=== PATIENT | female | born 1970 | race Caucasian/White ===

== ENCOUNTER → 2018-05-27 | Outpatient (CLI) | payer MEDICAID ==
[~2018-05-27] MED LIST: ALB0.5V; ALBU0.63 IH; ALBU17AE23; ALEN70TA5 PO; ALPR0.5T7 PO; ALPR1T; AMIT50TA3 PO; ATOR20TA66 PO; CEPH500C PO; CYCL10TA9 PO; FURO20TA4 PO; HYDR-3720 PO; HYDR-3816 PO; HYDR-707 PO; IBUP-1780 PO; METH4TAB PO; METH750T3 PO; MOXI400T; NAPR-243 PO; NAPR250T34 PO; PARO40TA47; RT-ALBUINH IH; TEMA30CA PO
--- NOTE | 2018-05-27 14:44 | Diagnostic Imaging Report ---
INDICATION: UPJ stone. TIME OF EXAM: 02:12 p.m. There are surgical clips in right upper quadrant likely from prior cholecystectomy. No definite radiopaque renal calculi are seen. Portion of the left kidney is obscured by colonic gas. Densities in the pelvis are noted which may represent fecal material. There is some rounded calcific density in the right pelvis, likely phleboliths. No definite calculi are seen along the expected course of the ureters. IMPRESSION: No definite urinary tract calculi are seen. If there is concern for urinary tract calculi, CT could be performed for further evaluation. Dictated by: Dictated on workstation # [id number]
== END ==
LOC: RAD 13:51
PROVIDERS: ATTEND Urology
DX: N20.1 Calculus of ureter (principal); Z90.49 Acquired absence of other specified parts of digestive tract
CPT/HCPCS: 74018

== ENCOUNTER 2018-05-28 05:30 | Outpatient (CLI) | payer MEDICAID ==
[~2018-05-28] VITALS: Ht 157.5 cm; Wt 56.7 kg
[~2018-05-28 05:30] MED LIST changes: -ALBU0.63 IH; -ALEN70TA5 PO; -ALPR0.5T7 PO; -AMIT50TA3 PO; -ATOR20TA66 PO; -CYCL10TA9 PO; -FURO20TA4 PO; -HYDR-3816 PO; -IBUP-1780 PO; -RT-ALBUINH IH; -TEMA30CA PO
[2018-05-28] MEDS ORDERED: ALEN70TA5 PO (12:09)
[2018-05-28] MEDS ORDERED: IBUP-1780 PO (12:09)
[2018-05-28] MEDS ORDERED: ATOR20TA66 PO (12:09)
[2018-05-28] MEDS ORDERED: ALBU0.63 IH (12:09)
[2018-05-28] MEDS ORDERED: HYDR-3816 PO (12:14)
[2018-05-28] MEDS ORDERED: RT-ALBUINH IH (12:14)
[2018-05-28] MEDS ORDERED: ALPR0.5T7 PO (12:14)
[2018-05-28] MEDS ORDERED: FURO20TA4 PO (12:14)
[2018-05-28] MEDS ORDERED: AMIT50TA3 PO (12:14)
[2018-05-28] MEDS ORDERED: TEMA30CA PO (12:14)
[2018-05-28] MEDS ORDERED: CYCL10TA9 PO (12:14)
== END 2018-05-28 12:23 | disposition home or self-care (01) ==
LOC: PREOP 05:30
PROVIDERS: ATTEND Urology
DX: Z01.818 Encounter for other preprocedural examination (principal)

== ENCOUNTER 2018-06-02 12:00 | Outpatient (CLI) | payer MEDICAID ==
[~2018-06-02] VITALS: Ht 157.5 cm; Wt 60.8 kg
[~2018-06-02 12:00] MED LIST changes: -NITR-65 PO; -TAMS0.4C98 PO
[2018-06-03] MEDS ORDERED: NITR-65 PO (10:58)
[2018-06-03] MEDS ORDERED: TAMS0.4C98 PO (10:58)
== END 2018-06-02 13:20 | disposition home or self-care (01) ==
LOC: PREOP 12:00
PROVIDERS: ATTEND Urology
DX: Z01.818 Encounter for other preprocedural examination (principal)

== ENCOUNTER → 2018-06-02 | Outpatient (CLI) | payer MEDICAID ==
[~2018-06-02] MED LIST changes: +ALBU0.63 IH; +ALEN70TA5 PO; +ALPR0.5T7 PO; +AMIT50TA3 PO; +ATOR20TA66 PO; +CYCL10TA9 PO; +FURO20TA4 PO; +HYDR-3816 PO; +IBUP-1780 PO; +NITR-65 PO; +RT-ALBUINH IH; +TAMS0.4C98 PO; +TEMA30CA PO
--- NOTE | 2018-06-02 13:39 | Diagnostic Imaging Report ---
PROCEDURE: CT urinary tract, rule out kidney stone. TECHNIQUE: Multiple contiguous axial images were obtained through the abdomen and pelvis without the use of intravenous contrast. INDICATION: Ureteral stone. FINDINGS: The previous CT abdomen/pelvis exam of 02/04/2008 failed to show any sign of obstruction of either kidney. There was a small nonobstructive calculus within the left kidney. In the interval since the prior study, a ureteral stent has been inserted on the left. The stent seems to be in good position. There may be one or two minute nonobstructive calculi within the left kidney. There is no evidence for nephrolithiasis on the right. The urinary bladder is grossly unremarkable. There is no pelvic mass or free fluid collection evident. In the interval since the prior exam, an appendicolith has developed within the appendix. The appendix does not seem to be abnormally thickened, and there is no distortion of the periappendiceal fat to suggest acute appendicitis. The uterus is surgically absent. The liver, spleen, pancreas, adrenals, aorta, and inferior vena cava show no sign of an acute abnormality. As noted on the prior exam, the gallbladder is surgically absent. The stomach is not well distended and consequently difficult to assess. The lung bases are generally clear. There is no obvious breast mass. According to our records, the patient has not had a recent (within the last year) mammogram. If the patient has had a recent mammogram elsewhere, then no further imaging would be necessary. If the patient has not had a recent mammogram, then mammography would be recommended for further evaluation. The bone windows show no sign of a fracture or of a destructive lesion. IMPRESSION: 1. There is a ureteral stent in place on the left. The stent appears to be in good position. There are a few nonobstructive calculi within the left kidney. 2. There is no acute abnormality of the abdomen or pelvis. 3. The gallbladder and uterus are surgically absent. 4. There is no obvious breast mass. Recommendations as above. Dictated by: Dictated on workstation # [id number]
--- NOTE | 2018-06-02 14:34 | Diagnostic Imaging Report ---
EXAMINATION: Supine abdomen at 12:51 p.m. INDICATION: Ureteral/renal stone. FINDINGS: In the interval since the prior exam of 05/29/2018, a ureteral stent has been inserted on the left. The stent appears to be in good position. The 4 mm calculus overlying the left kidney seen previously is again evident and no different. There also appear to be a few calcifications low in the pelvis. These are felt to represent phleboliths. No new abnormality has developed otherwise. IMPRESSION: 1. There has been interval insertion of a ureteral stent on the left. The stent seems to be in good position. 2. The calculus overlying the left kidney seen previously is again evident and no different. Dictated by: Dictated on workstation # [id number]
== END ==
LOC: RAD 12:31
PROVIDERS: ATTEND Urology
DX: N20.2 Calculus of kidney with calculus of ureter (principal); Z90.49 Acquired absence of other specified parts of digestive tract; Z96.0 Presence of urogenital implants; Z90.710 Acquired absence of both cervix and uterus
CPT/HCPCS: 74018; 74176

== ENCOUNTER 2018-06-03 06:31 | Day surgery (SDC) | payer MEDICAID ==
[~2018-06-03] VITALS: Ht 157.5 cm; Wt 60.8 kg
[2018-06-03] MEDS: LACTATED RINGERS 1,000 ML IV PRN ×2 (06:55→09:25)
[2018-06-03 07:00] VITALS: BP 111/82
[2018-06-03] MEDS ORDERED: LEVOFLOXACIN 250 MG/50 ML IVPB 50 ML ONE (07:02)
[2018-06-03] MEDS ORDERED: fentaNYL INJECTION 100 MCG/2 ML AMP ONE ×2 (07:11→08:12)
--- NOTE | 2018-06-03 07:11 | Progress Note-Pre Operative ---
Pre-Operative Progress Note H&P Reviewed The H&P was reviewed, patient examined and no changes noted. Date Seen by Provider: Jun 03, 2018 Time Seen by Provider: 07:11 Date H&P Reviewed: Jun 03, 2018 Time H&P Reviewed: 07:11 Pre-Operative Diagnosis: LT URETERAL AND RENAL STONES RM BELLO MD Jun 03, 2018 07:11
[2018-06-03] MEDS ORDERED: fentaNYL INJECTION 100 MCG/2 ML AMP IVP ONE (07:15)
[2018-06-03] MEDS ORDERED: LEVOFLOXACIN 250 MG/50 ML IVPB 50 ML IV ONE (07:15)
[2018-06-03] MEDS ORDERED: CATHETER FLUSH 10 ML SYR IV PRN (07:45)
[2018-06-03] MEDS ORDERED: proPOfol 200 MG/20 ML (DIPRIVAN) VIAL IV ONE (08:11)
[2018-06-03] MEDS ORDERED: LIDOCAINE PF 2% 5 ML (XYLOCAINE) VIAL ONE (08:11)
[2018-06-03] MEDS ORDERED: MIDAZOLAM 2 MG/2 ML (VERSED) VIAL ONE (08:12)
--- NOTE | 2018-06-03 08:12 | Diagnostic Imaging Report ---
INDICATION: Nephrolithiasis. Comparison is made with prior examination from 06/02/2018. FINDINGS: A left nephroureteral stent remains in place. There is persistent calcification of the left kidney. Bowel gas pattern is nonspecific. There are surgical clips in the right upper quadrant. The osseous structures are unremarkable. IMPRESSION: Persistent nonobstructing left renal calculi. Left nephroureteral stent remains in place. Nonspecific bowel gas pattern Dictated by: Dictated on workstation # [id number]
[2018-06-03] MEDS ORDERED: DEXAMETHASONE 10 MG/ML (DECADRON) 1 ML VIAL ONE (08:14)
[2018-06-03] MEDS ORDERED: SEVOFLURANE (ULTANE) 15 ML INHAL SOLN ONE ×2 (08:14→09:38)
[2018-06-03] MEDS ORDERED: ONDANSETRON 4 MG/2 ML (SDV) Z0FRAN ONE (08:14)
--- NOTE | 2018-06-03 09:17 | Discharge Inst-Urology ---
Discharge Inst-Urology Discharge Medications New, Converted, or Re-newed RX: RX on Chart Patient Instructions/Follow Up Plan Please make appointment to been seen in office in 2 weeks, KUB prior to it. KUB on way home Post ESWL instructions Increase oral fluids for 48 hours and then as needed. Diet and Activity as tolerated. If questions or concerns contact your physician Or seek help at emergency department. RM BELLO MD Jun 03, 2018 09:17
--- NOTE | 2018-06-03 09:18 | Progress Note-Post Operative ---
Post-Operative Progess Note Surgeon (s)/Neighborhood Worker (s) Surgeon RM BELLO MD Neighborhood Worker: NONE Pre-Operative Diagnosis LT URETERAL AND RENAL STONES Post-Operative Diagnosis SAME Procedure & Operative Findings Date of Procedure 06/03/18 Procedure Performed/Findings LT ESWL X 2 Anesthesia Type GENERAL Estimated Blood Loss Estimated blood loss (mL): NONE Specimens/Packing Specimens Removed NONE Packing: NONE RM BELLO MD Jun 03, 2018 09:18
[2018-06-03] MEDS ORDERED: PHENYLEPHRINE 100 MCG/ML 10 ML (ANESTHESIA) SYR ONE (09:38)
[2018-06-03] MEDS ORDERED: FUROSEMIDE 40 MG/4 ML INJ (LASIX) ONE (09:38)
[2018-06-03] MEDS ORDERED: ONDANSETRON 4 MG/2 ML (SDV) Z0FRAN IVP PRN (10:00)
[2018-06-03] MEDS ORDERED: MEPERIDINE (DEMEROL) INJ 50 MG/ML IVP ONE (10:00)
[2018-06-03] MEDS ORDERED: morphine INJ 10 MG/ML 1ML (SYR OR VIAL) IVP ONE (10:00)
[2018-06-03 10:35] VITALS: BP 121/83
--- NOTE | 2018-06-03 10:35 | NUR ---
TO AMB SURG FROM PAR PER CART. ALERT, RATES LEFT LOWER ABD/PELVIC DISCOMFORT 2. PO FLUIDS PROVIDED.
--- NOTE | 2018-06-03 10:51 | Anesthesia-General Post-Op ---
General Patient Condition Mental Status/LOC: Same as Preop Cardiovascular: Satisfactory Nausea/Vomiting: Absent Respiratory: Satisfactory Pain: Controlled Complications: Absent Post Op Complications Complications None Follow Up Care/Instructions Patient Instructions None needed. Anesthesia/Patient Condition Patient Condition Patient is doing well, no complaints, stable vital signs, no apparent adverse anesthesia problems. No complications reported per nursing. AVTAR HUGGINS CRNA Jun 03, 2018 10:51
[2018-06-03] MEDS ORDERED: NITR-65 PO (10:58)
[2018-06-03] MEDS ORDERED: TAMS0.4C98 PO (10:58)
[2018-06-03 11:05] VITALS: BP 105/83
--- NOTE | 2018-06-03 11:30 | NUR ---
HAS VOIDED 1800 CC CLEAR, LIGHT PINK URINE, STRAINED, NO STONE PARTICLES OBTAINED. RATES LEFT LOWER ABD/PELVIC PAIN 1. REQUESTING DISMISSAL.
[2018-06-03 11:35] VITALS: BP 109/83
[2018-06-03 11:42] VITALS: BP 109/83
--- NOTE | 2018-06-03 13:48 | OPERATIVE REPORT ---
DATE OF SERVICE: 06/03/2018 PREOPERATIVE DIAGNOSES: Left distal ureteral and left renal stones. POSTOPERATIVE DIAGNOSES: Left distal ureteral and left renal stones. OPERATION PERFORMED: Left ESWL x2. SURGEON: Genaro Bello MD. ANESTHESIA: General. COMPLICATIONS: None. DESCRIPTION OF PROCEDURE: Under satisfactory general anesthesia, the patient in supine position on the ESWL table, we first localized the left distal ureteral stone. Shocks were delivered at a kV of 5, 1500 shocks completely fragmented the stone that was not visualized anymore. Then, we directed the attention to the left renal stone. It was localized and shocks again were delivered at a kV of 4 and 1500 shocks were enough to the fragment completely the stone. The patient received 40 mg of Lasix. We did not give her any Toradol. She is allergic to ASPIRIN. She tolerated the procedure and anesthesia well and was sent to recovery room in stable condition. Job ID: [id number] DocumentID: [id number] Dictated Date: 06/03/2018 09:37:30 Senior [employer] Net Developer Date: 06/03/2018 13:48:07 Dictated By: GENARO BELLO MD
--- NOTE | 2018-06-03 15:20 | Diagnostic Imaging Report ---
EXAMINATION: Supine abdomen at 11:18 a.m. INDICATION: Post ESWL. FINDINGS: Reportedly, in the interval since the exam performed earlier today at 07:04 a.m., the patient has undergone ESWL. The calcification overlying the left kidney seen previously has been fragmented. The ureteral stent noted on the prior study is again evident and unchanged in position. The overall appearance of the abdomen is otherwise no different. IMPRESSION: The calcification overlying the left kidney seen previously has been fragmented. The overall appearance of the abdomen is otherwise stable. Dictated by: Dictated on workstation # [id number]
== END 2018-06-03 11:42 | disposition home or self-care (01) ==
LOC: SDC 06:31
PROVIDERS: ATTEND Urology
DX: N20.1 Calculus of ureter (principal); N20.0 Calculus of kidney; E78.5 Hyperlipidemia, unspecified; F32.9 Major depressive disorder, single episode, unspecified; Z79.899 Other long term (current) drug therapy
CPT/HCPCS: 74018; 87081

== ENCOUNTER → 2018-06-09 | Outpatient (CLI) | payer MEDICAID ==
[~2018-06-09] MED LIST changes: +NITR-65 PO; +TAMS0.4C98 PO
--- NOTE | 2018-06-09 17:11 | Diagnostic Imaging Report ---
INDICATION: Left ureteral calculi. TIME OF EXAM: 02:49 p.m. Correlation is made with prior radiograph from 06/03/2018. FINDINGS: A left-sided nephroureteral stent is again seen. Previously noted calculi overlying the left kidney are not well seen on today's study. There is a tiny rounded calcific density adjacent to the distal portion of the left stent, perhaps in the distal left ureter. This measures 2-3 mm in size. Right-sided pelvic calcifications likely represent phleboliths. There are some tiny densities adjacent to the more proximal aspect of the stent as well and could be located in the proximal left ureter. Bowel gas pattern is unremarkable IMPRESSION: Left-sided stent. There are some calcific densities lying adjacent to the proximal and distal aspect of the stent, as described. Dictated by: Dictated on workstation # [id number]
== END ==
LOC: RAD 14:28
PROVIDERS: ATTEND Urology
DX: N20.2 Calculus of kidney with calculus of ureter (principal); N94.89 Other specified conditions associated with female genital organs and menstrual cycle; Z96.0 Presence of urogenital implants
CPT/HCPCS: 74018

== ENCOUNTER → 2018-08-04 | Outpatient (CLI) | payer MEDICAID ==
--- NOTE | 2018-08-04 17:57 | Diagnostic Imaging Report ---
INDICATION: Left ureteral stone. Status post ESWL. FINDINGS: A supine view of the abdomen shows a normal bowel gas pattern. The left ureteral stent has been removed since the 06/09/2018 study. No urinary tract calcification is seen. There is no bony abnormality. IMPRESSION: No abnormality is seen. Dictated by: Dictated on workstation # [id number]
== END ==
LOC: RAD 16:30
PROVIDERS: ATTEND Urology
DX: N20.2 Calculus of kidney with calculus of ureter (principal); Z98.890 Other specified postprocedural states
CPT/HCPCS: 74018

== ENCOUNTER → 2018-11-25 | Outpatient (CLI) | payer MEDICAID ==
--- NOTE | 2018-11-25 10:29 | Diagnostic Imaging Report ---
Indication: Right knee at 9:49. Indication: Knee pain. Three views were obtained. There are no prior studies available for comparison. There is no fracture, dislocation or acute bony abnormality evident. The knee joint is fairly well-maintained. The soft tissues are unremarkable. Impression: There is no evidence for an acute bony abnormality. Dictated by: Dictated on workstation # [id number]
== END ==
LOC: RAD FS 09:44
PROVIDERS: ATTEND Nurse Practitioner Family
DX: M25.561 Pain in right knee (principal)
CPT/HCPCS: 73562

== ENCOUNTER → 2019-05-03 | Outpatient (CLI) | payer MEDICAID ==
--- NOTE | 2019-05-03 10:37 | Diagnostic Imaging Report ---
INDICATION: Low back pain radiating to the right leg. Time of exam: 10:26 AM There is some straightening of the normal lumbar lordotic curvature. Vertebral body heights are maintained. No acute compression fracture seen. Disc spaces are fairly well-maintained. There are some atherosclerotic calcifications throughout the abdominal aorta. IMPRESSION: No acute bony abnormality is detected. Dictated by: Dictated on workstation # [id number]
== END ==
LOC: RAD FS 10:23
PROVIDERS: ATTEND Nurse Practitioner Family
DX: M54.41 Lumbago with sciatica, right side (principal)
CPT/HCPCS: 72100

== ENCOUNTER → 2019-05-24 | Outpatient (CLI) | payer MEDICAID ==
[~2019-05-24] MED LIST changes: -TAMS0.4C98 PO; +TMSL.4C PO
--- NOTE | 2019-05-24 09:28 | Diagnostic Imaging Report ---
PROCEDURE: MRI lumbar spine. TECHNIQUE: Multiplanar, multisequence MRI of the lumbar spine was performed without contrast. INDICATION: Low back pain radiating down the right leg. COMPARISON: No prior studies are available for comparison. FINDINGS: Curvature and alignment of the lumbar spine is normal. Marrow signal intensity of the lumbar spine is normal. The sagittal images demonstrate some increased T2 signal in the right aspect of the sacrum, only seen on the sagittal images. This area was not included on the axial images but findings are most suggestive of a right sacral alar insufficiency fracture. Lumbar vertebrae show normal stature. There is fairly normal height and signal intensity to the lumbar intervertebral discs. Conus is unremarkable at the L1 level. T12-L1: Central canal and neural foramina are widely patent. L1-T2: Central canal and neural foramina are widely patent. L2-L3: There is some mild ligamentous thickening. The central canal is widely patent. There is very mild bilateral neuroforaminal narrowing. L3-L4: Central canal is widely patent. There is mild bilateral neuroforaminal narrowing. L4-L5: There is some ligamentous thickening and annular bulging indenting the ventral thecal sac. Central canal is patent. There is some narrowing of the lateral recesses with moderate left and mild right neuroforaminal narrowing. L5-S1: Central canal is patent. Neural foramina are patent. Paraspinous tissues demonstrate the probable cyst in the upper pole of the right kidney. IMPRESSION: 1. Generalized lumbar spondylosis with mild multilevel lateral recess and neuroforaminal narrowing described level by level above. No central canal stenosis or acute compression fracture is seen. 2. Marrow edema in the right sacral alar. Findings are most suggestive of right sacral alar insufficiency fracture. Dedicated MR through the sacrum or CT of the pelvis may be useful for further evaluation. Dictated by: Dictated on workstation # [id number]
== END ==
LOC: RAD 08:24
PROVIDERS: ATTEND Nurse Practitioner
DX: M51.16 Intervertebral disc disorders with radiculopathy, lumbar region (principal); M47.26 Other spondylosis with radiculopathy, lumbar region; M48.061 Spinal stenosis, lumbar region without neurogenic claudication; R60.9 Edema, unspecified
CPT/HCPCS: 72148

== ENCOUNTER → 2019-05-28 | Outpatient (CLI) | payer MEDICAID ==
--- NOTE | 2019-05-28 13:54 | Diagnostic Imaging Report ---
INDICATION: Right-sided flank pain, history of kidney stones. TECHNIQUE: Multiple contiguous axial images were obtained through the abdomen and pelvis without the use of intravenous contrast. Auto Exposure Controls were utilized during the CT exam to meet ALARA standards for radiation dose reduction. COMPARISON: Comparison made to 06/02/2018. FINDINGS: The visualized portions of the lung bases are clear. There is no pleural fluid collection. There is no free intraperineal air. The liver shows no focal lesion without contrast. Patient has had cholecystectomy. The spleen, adrenals, and pancreas all appear unremarkable. The right kidney appears normal. There is a tiny nonocclusive stone in the lower pole of the left kidney. There is no ureteral stone or hydronephrosis. There is no retroperitoneal mass or adenopathy. There is no ascites or abnormal fluid collection. Visualized bowel loops appear unremarkable. The uterus is surgically absent. Bony windows in the pelvis demonstrate sclerotic changes in the right sacral ala with a fairly linear configuration. These changes were not present on the prior study of 06/02/2018. These findings may represent subacute sacral insufficiency fracture on the right side. This corresponds to abnormality seen on MRI study of 05/24/2019. IMPRESSION: Evidence of previous cholecystectomy and hysterectomy. There is a small nonocclusive stone in the lower pole of the left kidney. There is no ureteral stone or hydronephrosis. There is no soft tissue mass or abnormal fluid collection. There are linear sclerotic changes in the right sacral ala which were not present on 06/02/2018 but were partially visualized on MRI study of 05/24/2019. The findings are compatible with a sacral insufficiency fracture which may be acute or subacute. Patient may benefit from sacroplasty if there is clinical symptomatology in this region. Dictated by: Dictated on workstation # [id number]
== END ==
LOC: RAD 12:34
PROVIDERS: ATTEND Urology
DX: N20.0 Calculus of kidney (principal)
CPT/HCPCS: 74176

== ENCOUNTER → 2019-11-09 | Outpatient (CLI) | payer MEDICAID ==
[~2019-11-09] MED LIST changes: +ALEN70TA2 PO; +ASPI-586 PO; +CARI1.5C PO; +HYDR-34 PO; -HYDR-3816 PO; +METO-351 PO; +PRAV20TA3 PO
== END ==
LOC: RAD 12:47
PROVIDERS: ATTEND Internal Medicine Cardiovascular Disease
DX: M79.604 Pain in right leg (principal); M79.605 Pain in left leg; R06.02 Shortness of breath; R07.89 Other chest pain; Z72.0 Tobacco use
CPT/HCPCS: 93923

== ENCOUNTER → 2019-11-09 | Outpatient (CLI) | payer MEDICAID ==
[~2019-11-09] MED LIST changes: -ALEN70TA2 PO; -ASPI-586 PO; -CARI1.5C PO; -METO-351 PO; -PRAV20TA3 PO
== END ==
LOC: RAD 12:50
PROVIDERS: ATTEND Nurse Practitioner Family
DX: R60.0 Localized edema (principal); Z53.8 Procedure and treatment not carried out for other reasons

== ENCOUNTER 2019-11-16 06:47 | Day surgery (SDC) | payer MEDICAID ==
[2019-11-16] VITALS (11 sets, daily range): BP systolic 102–129; BP diastolic 67–81
[~2019-11-16] VITALS: Ht 157 cm; Wt 64.0 kg
--- OUTSIDE RECORDS SUMMARY | 2019-11-16 06:50 | XMS REPORT ---
Author Author Mary CHILDRESS Organization [facility] Address [address] [place] [address] Care Team Providers Care [employer] Board Certified Orthotist Name Role Phone CHILDRESSYOLANDA TolentinoA Unavailable PROBLEMS Type Condition ICD9-CM Code EHH30-LO Code Onset Dates Condition S tatus SNOMED Code Problem OCD (obsessive compulsive disorder) F42.9 Active 249828521 Problem Status post colonoscopy with polypectomy Z98.890 Aug, Active 166309944 Problem Arthralgia M25.50 Aug, Active 821380 02 Problem Tubular adenoma of colon D12.6 Aug, Ac tive 096964921 Problem Chronic low back pain M54.5 Mar, Activ e 781786494 Problem Mixed hyperlipidemia E78.2 Oct, Active 295154831 Problem Asthma J45.909 Active 277026476 Problem Primary insomnia F51.01 Active 397 2004 Problem Bipolar disorder F31.9 Active 137 77403 Problem Essential hypertension I10 Active 14992053 Problem Primary osteoarthritis of left knee M17.12 18 A 2014 Active 070376094 Problem Tobacco use Z72.0 Feb, Active 37644 3000 Problem Osteoporosis M81.0 Active 5533773 6 Problem Depression F32.9 Active 99792649 Problem Anxiety F41.9 Active 70001077 ALLERGIES No Information ENCOUNTERS Encounter Location Date Diagnosis [address] [id number] Jan, [address] [address] Nov, Knee pain, acute M25.[address] [address] Nov, Acute pain of right knee M25.561 and Sherrie scout insomnia F51.[address] [address] Nov, Bipolar disorder F31.9 ; Essential hyper tension I10 ; Chronic low back pain M54.5 ; Mixed hyperlipidemia E78.2 and Primary insomnia F51.01 [facility] [address] [address] September, Chronic low back pain M54.[address] [address] September, Medication monitoring encounter Z51.81 [facility] [address] [address] September, [address] [address] September, Primary insomnia F51.01 ; Chronic low ba ck pain M54.5 ; Anxiety F41.9 and Medication monitoring encounter Z51.81 [facility] [place] [address] [address] Aug, Chronic low back pain M54.5 and Anxiety F41.9 [facility] [address] [address] Aug, [address] [address] Aug, Primary insomnia F51.01 [facility] [address] [address] Aug, Mixed hyperlipidemia E78.2 ; Depression F32.9 ; Chronic low back pain M54.5 ; Anxiety F41.9 ; Primary insomnia F51.01 and Essential hypertension I10 [facility] [place] [address] [address] Jul, [facility] [address] [address] Jul, [facility] [address] [address] Jun, [address] [address] Jun, [facility] [address] [facility] [id number] [address] [place] [address] May, [facility] [address] [id number] [address] [place] [phone] May, [facility] [address] [id number] [address] [place] [phone] May, [facility] [address] [id number] [address] [place] [address] Apr, [facility] [address] [id number] [address] [place] [phone] Apr, [facility] [address] [id number] [address] [place] [address] Mar, [facility] [address] [id number] [address] [place] [address] Mar, [facility] [address] [id number] [address] [place] [phone] Aug, [facility] [address] [id number] [address] [place] [address] Aug, [facility] [address] [id number] [address] [place] [phone] Aug, [facility] [address] [id number] [address] [place] [phone] Jul, [facility] [address] [id number] [address] [place] [phone] Jul, [facility] [address] [id number] [address] [place] [phone] Jul, [facility] [address] [id number] [address] [place] [phone] Jul, [facility] [address] [id number] [address] [place] [phone] Jun, IMMUNIZATIONS No Known Immunizations SOCIAL HISTORY Never Assessed REASON FOR VISIT Controlled fill 07/27 PLAN OF CARE VITAL SIGNS MEDICATIONS Medication Instructions Dosage Frequency Start Date End Date Duration S tatus Alprazolam 0.25 MG Orally 3 times a day 1 tablet as needed 8h 28 days Active Temazepam 30 MG Orally Once a day 1 capsule at bedtime as needed 24h 28 days Active RESULTS No Results PROCEDURES No Known procedures INSTRUCTIONS MEDICATIONS ADMINISTERED No Known Medications
--- OUTSIDE RECORDS SUMMARY | 2019-11-16 06:50 | XMS REPORT ---
Author Author Mary [place] Doctor Organization [facility] Address Unknown Phone Unavailable Care Team Providers Care Patient Manager Name Role Phone Migration, Doctor Unavailable Unavailable PROBLEMS Type Condition ICD9-CM Code ABR84-XI Code Onset Dates Condition S tatus SNOMED Code Problem OCD (obsessive compulsive disorder) F42.9 Active 995254390 Problem Status post colonoscopy with polypectomy Z98.890 Aug, Active 219537114 Problem Arthralgia M25.50 Aug, Active 611840 02 Problem Tubular adenoma of colon D12.6 Aug, Ac tive 873716492 Problem Chronic low back pain M54.5 Mar, Activ e 975751630 Problem Mixed hyperlipidemia E78.2 Oct, Active 246257518 Problem Asthma J45.909 Active 191733038 Problem Primary insomnia F51.01 Active 397 2004 Problem Bipolar disorder F31.9 Active 137 88504 Problem Essential hypertension I10 Active 41862854 Problem Primary osteoarthritis of left knee M17.12 18 2014 Active 298403364 Problem Tobacco use Z72.0 Feb, Active 67064 3000 Problem Osteoporosis M81.0 Active 0539283 6 Problem Depression F32.9 Active 92572166 Problem Anxiety F41.9 Active 80736755 ALLERGIES No Information ENCOUNTERS Encounter Location Date Diagnosis [address] [address] Nov, [address] [address] September, Primary insomnia F51.01 ; Chronic low ba ck pain M54.5 and Anxiety F41.[address] [address] Aug, Chronic low back pain M54.5 and Anxiety F41.[address] [address] Aug, [address] [place] [address] Aug, Primary insomnia F51.01 [facility] [address] [place] [address] Aug, Mixed hyperlipidemia E78.2 ; Depression F32.9 ; Chronic low back pain M54.5 ; Anxiety F41.9 ; Primary insomnia F51.01 and Essential hypertension I10 [facility] [address] [place] [address] Jul, [facility] [address] [place] [address] Jul, [facility] [address] [place] [address] Jun, [facility] [place] [address] [place] [address] Jun, [facility] [address] [id number] [address] [place] [phone] May, [facility] [address] [id number] [address] [place] [phone] May, [facility] [address] [id number] [address] [place] [phone] May, [facility] [address] [id number] [address] [place] [phone] Apr, [facility] [address] [id number] [address] [place] [phone] Apr, [facility] [address] [id number] [address] [place] [phone] Mar, [facility] [address] [id number] [address] [place] [phone] Mar, [facility] [address] [id number] [address] [place] [phone] 14 Aug, 2014 [facility] [address] [id number] [address] [place] [phone] 13 Aug, 2014 [facility] [address] [id number] [address] [place] [phone] Aug, [facility] [address] [facility] [id number] [address] [place] [phone] Jul, [facility] [address] [facility] [id number] [address] [place] [phone] Jul, [facility] [address] [facility] [id number] [address] [place] [phone] Jul, [facility] [address] [facility] [id number] [address] [place] [phone] Jul, [facility] [address] [facility] [id number] [address] [place] [phone] Jun, IMMUNIZATIONS No Known Immunizations SOCIAL HISTORY Never Assessed REASON FOR VISIT [facility] [place] PLAN OF CARE VITAL SIGNS MEDICATIONS Unknown Medications RESULTS No Results PROCEDURES No Known procedures INSTRUCTIONS MEDICATIONS ADMINISTERED No Known Medications
--- OUTSIDE RECORDS SUMMARY | 2019-11-16 06:50 | XMS REPORT ---
Author Author Mary KONG Organization [facility] Address [address] [place] [address] Care Team Providers Care Satellite Manager Name Role Phone YULIANA KONG Unavailable PROBLEMS Type Condition ICD9-CM Code NEI66-XY Code Onset Dates Condition S tatus SNOMED Code Problem OCD (obsessive compulsive disorder) F42.9 Active 963761393 Problem Status post colonoscopy with polypectomy Z98.890 Aug, Active 864471433 Problem Arthralgia M25.50 Aug, Active 963307 02 Problem Tubular adenoma of colon D12.6 Aug, Ac tive 669436258 Problem Chronic low back pain M54.5 Mar, Activ e 531716839 Problem Mixed hyperlipidemia E78.2 Oct, Active 259723529 Problem Asthma J45.909 Active 300836497 Problem Primary insomnia F51.01 Active 397 2004 Problem Bipolar disorder F31.9 Active 137 35264 Problem Essential hypertension I10 Active 44092375 Problem Primary osteoarthritis of left knee M17.12 18 A 2014 Active 776557140 Problem Tobacco use Z72.0 Feb, Active 52752 3000 Problem Osteoporosis M81.0 Active 4079288 6 Problem Depression F32.9 Active 09909673 Problem Anxiety F41.9 Active 40287830 ALLERGIES No Information ENCOUNTERS Encounter Location Date Diagnosis [address] [address] Nov, Knee pain, acute M25.[address] [address] Nov, Acute pain of right knee M25.561 and Sherrie scout insomnia F51.[address] [address] Nov, Bipolar disorder F31.9 ; Essential hyper tension I10 ; Chronic low back pain M54.5 ; Mixed hyperlipidemia E78.2 and Primary insomnia F51.01 [facility] [address] [address] September, Chronic low back pain M54.5 [facility] [address] [address] September, Medication monitoring encounter Z51.81 [facility] [address] [address] September, [facility] [address] [address] September, Primary insomnia F51.01 ; Chronic low ba ck pain M54.5 ; Anxiety F41.9 and Medication monitoring encounter Z51.81 [facility] [address] [place] [address] Aug, Chronic low back pain M54.5 and Anxiety F41.9 [facility] [address] [address] Aug, [facility] [address] [address] Aug, Primary insomnia F51.01 [facility] [address] [address] Aug, Mixed hyperlipidemia E78.2 ; Depression F32.9 ; Chronic low back pain M54.5 ; Anxiety F41.9 ; Primary insomnia F51.01 and Essential hypertension I10 [facility] [address] [address] Jul, [facility] [address] [address] Jul, [facility] [address] [address] Jun, [facility] [address] [address] Jun, [facility] [address] [facility] [id number] [address] [place] [phone] May, [facility] [address] [facility] [id number] [address] [place] [phone] May, [facility] [address] [id number] [address] [place] [phone] May, [facility] [address] [id number] [address] [place] [phone] Apr, [facility] [address] [id number] [address] [place] [phone] Apr, [facility] [address] [id number] [address] [place] [phone] Mar, [facility] [address] [id number] [address] [place] [phone] Mar, [facility] [address] [id number] [address] [place] [phone] Aug, [facility] [address] [id number] [address] [place] [phone] Aug, [facility] [address] [id number] [address] [place] [phone] Aug, [facility] [address] [id number] [address] [place] [phone] Jul, [facility] [address] [id number] [address] [place] [phone] Jul, [facility] [address] [id number] [address] [place] [phone] Jul, [facility] [address] [id number] [address] [place] [phone] Jul, [facility] [address] [id number] [address] [place] [phone] Jun, IMMUNIZATIONS No Known Immunizations SOCIAL HISTORY Never Assessed REASON FOR VISIT Medication refill request PLAN OF CARE VITAL SIGNS MEDICATIONS Medication Instructions Dosage Frequency Start Date End Date Duration Mattie lenz Hydrocodone-Acetaminophen 7.5-325 MG Orally 2 times a day 1 tablet 12h 19 Jul, 2018 28 days Active RESULTS No Results PROCEDURES No Known procedures INSTRUCTIONS MEDICATIONS ADMINISTERED No Known Medications
--- OUTSIDE RECORDS SUMMARY | 2019-11-16 06:50 | XMS REPORT ---
Author Author Mary [place] Doctor Organization [facility] Address Unknown Phone Unavailable Care Team Providers Care Tack Welder Name Role Phone Migration, Doctor Unavailable Unavailable PROBLEMS Type Condition ICD9-CM Code NCC86-HS Code Onset Dates Condition S tatus SNOMED Code Problem Status post colonoscopy with polypectomy Z98.890 Aug, 0 933810812 Problem Status post colonoscopy with polypectomy V45.89 Aug, 0 42430635 Problem Primary osteoarthritis of left knee 715.16 18 A 2014 0 731158370 Problem OCD (obsessive compulsive disorder) F42.9 0 023026855 Problem Arthralgia M25.50 2012 0 692907 02 Problem Tubular adenoma of colon D12.6 Aug, 0 395697615 Problem Arthralgia 719.40 Aug, 0 816643 02 Problem Chronic low back pain 724.2 Mar, 0 561735601 Problem Osteoporosis M81.0 0 0037066 6 Problem Chronic low back pain M54.5 Mar, 0 066182957 Problem Asthma J45.909 0 836561936 Problem Depression F32.9 0 41234223 Problem Mixed hyperlipidemia E78.2 Oct, 0 414172601 Problem Tobacco use Z72.0 Feb, 0 92609 3000 Problem OCD (obsessive compulsive disorder) 300.3 0 066166858 Problem Tubular adenoma of colon 211.3 Aug, 0 904781663 Problem Tobacco use 305.1 Feb, 0 93143 3000 Problem Bipolar disorder 296.80 0 137 65946 Problem Asthma 493.90 0 689619629 Problem Urinary tract infection, site not specified 599.0 Active 95933768 Problem Osteoporosis 733.00 0 2529832 6 Problem Mixed hyperlipidemia 272.2 Oct, 0 857017701 Problem Primary osteoarthritis of left knee M17.12 18 A 2014 0 744826085 Problem Bipolar disorder F31.9 0 137 00025 Problem Depression 311 0 81943217 Problem Screening for iron deficiency anemia V78.0 Active 892925278 Problem Other and unspecified endocr ine, nutritional, metabolic, and immunity disorders V77.99 Active 243008604 Problem Pain in joint, shoulder region 719.41 Active 666934742 ALLERGIES No Information ENCOUNTERS Encounter Location Date Diagnosis [facility] [address] [address] Aug, [facility] [address] [place] [phone] Jul, [facility] [address] [address] Jul, [facility] [address] [address] Jun, [facility] [address] [address] Jun, [facility] [place] [address] [facility] [id number] [address] [place] [phone] May, [facility] [place] [address] [id number] [address] [place] [phone] May, [facility] [place] [address] [id number] [address] [place] [phone] May, [facility] [place] [address] [id number] [address] [place] [phone] Apr, [facility] [place] [address] [id number] [address] [place] [phone] Apr, [facility] [place] [address] [id number] [address] [place] [phone] Mar, [facility] [place] [address] [id number] [address] [place] [phone] Mar, [facility] [place] [address] [id number] [address] [place] [phone] 14 Aug, 2014 [facility] [place] [address] [id number] [address] [place] [phone] 13 Aug, 2014 [facility] [place] [address] [id number] [address] [place] [phone] Aug, [facility] [place] [address] [facility] [id number] [address] [place] [phone] Jul, [facility] [place] [address] [facility] [id number] [address] [place] [phone] Jul, [facility] [place] [address] [facility] [id number] [address] [place] [phone] Jul, [facility] [place] [address] [facility] [id number] [address] [place] [phone] Jul, [facility] [place] [address] [facility] [id number] [address] [place] [phone] Jun, IMMUNIZATIONS No Known Immunizations SOCIAL HISTORY Never Assessed REASON FOR VISIT [facility] PLAN OF CARE VITAL SIGNS MEDICATIONS Medication Instructions Dosage Frequency Start Date End Date Duration S tatus Mobic 15 mg take 1 Tablet by Oral route 1 time per day 2 0 Jul, 2011 Active Nitrofurantoin Macrocrystal 100 mg 1 cap mahesh by Oral route 2 times per day for 7 day(s) Jul, Active RESULTS No Results PROCEDURES No Known procedures INSTRUCTIONS MEDICATIONS ADMINISTERED No Known Medications
--- OUTSIDE RECORDS SUMMARY | 2019-11-16 06:51 | XMS REPORT | Continuity of Care Document ---
Author Organization Unknown Address Unknown Phone Unavailable Allergies Active Description Code Type Severity Reaction Onset Reported/Identified Relationship to Patient Clinical Status Yes UNKNOWN ABX UNKNOWN ABX Mild N/A 09/15/2008 Yes aspirin [id number] Drug Allergy Mild N/A 05/28/2018 Yes moxifloxacin [id number] Drug Allergy Mild N/A 05/28/2018 Yes Penicillins [id number] Drug Aller gy Mild N/A 05/28/2018 Medications There is no data. Problems Date Dx Coded Attending Type Code Diagnosis Diagnosed By 05/28/2018 RM BELLO MD Ot N20.1 CALCULUS OF URETER 05/28/2018 RM BELLO MD Ot Z90.4 9 ACQUIRED ABSENCE OF OTHER SPECIFIED PART 05/28/2018 RM BELLO MD Ot N20.1 CALCULUS OF URETER 05/28/2018 RM BELLO MD Ot Z90.4 9 ACQUIRED ABSENCE OF OTHER SPECIFIED PART 05/28/2018 RM BELLO MD Ot Z01.8 18 ENCOUNTER FOR OTHER PREPROCEDURAL EXAMIN 05/29/2018 RM BELLO MD Ot N20.1 CALCULUS OF URETER 05/29/2018 RM BELLO MD Ot Z90.4 9 ACQUIRED ABSENCE OF OTHER SPECIFIED PART 05/29/2018 RM BELLO MD Ot Z01.8 18 ENCOUNTER FOR OTHER PREPROCEDURAL EXAMIN 05/29/2018 RM BELLO MD Ot F17.2 10 NICOTINE DEPENDENCE, CIGARETTES, UNCOMPL 05/29/2018 RM BELLO MD Ot J45.9 09 UNSPECIFIED ASTHMA, UNCOMPLICATED 05/29/2018 RM BELLO MD Ot K21.9 GASTRO-ESOPHAGEAL REFLUX DISEASE WITHOUT 05/29/2018 RM BELLO MD Ot N20.1 CALCULUS OF URETER 05/29/2018 RM BELLO MD Ot N81.1 0 CYSTOCELE, UNSPECIFIED 05/29/2018 RM BELLO MD Ot Z79.8 99 OTHER PHARMACIST MANAGER (CURRENT) DRUG THERAPY 06/01/2018 RM BELLO MD Ot F17.2 10 NICOTINE DEPENDENCE, CIGARETTES, UNCOMPL 06/01/2018 RM BELLO MD Ot J45.9 09 UNSPECIFIED ASTHMA, UNCOMPLICATED 06/01/2018 RM BELLO MD Ot K21.9 GASTRO-ESOPHAGEAL REFLUX DISEASE WITHOUT 06/01/2018 RM BELLO MD Ot N20.1 CALCULUS OF URETER 06/01/2018 RM BELLO MD Ot N81.1 0 CYSTOCELE, UNSPECIFIED 06/01/2018 RM BELLO MD, Ot Z79.8 99 OTHER ALF (CURRENT) DRUG THERAPY 06/02/2018 RM BELLO MD Ot Z01.8 18 ENCOUNTER FOR OTHER PREPROCEDURAL EXAMIN 06/02/2018 RM BELLO MD Ot N20.2 CALCULUS OF KIDNEY WITH CALCULUS OF URET 06/02/2018 RM BELLO MD Ot Z90.4 9 ACQUIRED ABSENCE OF OTHER SPECIFIED PART 06/02/2018 RM BELLO MD Ot Z90.7 10 ACQUIRED ABSENCE OF BOTH CERVIX AND UTER 06/02/2018 RM BELLO MD Ot Z96.0 PRESENCE OF UROGENITAL IMPLANTS 06/03/2018 RM BELLO MD Ot Z01.8 18 ENCOUNTER FOR OTHER PREPROCEDURAL EXAMIN 06/03/2018 RM BELLO MD Ot E78.5 HYPERLIPIDEMIA, UNSPECIFIED 06/03/2018 RM BELLO MD Ot F32.9 MAJOR DEPRESSIVE DISORDER, SINGLE EPISOD 06/03/2018 RM BELLO MD Ot N20.0 CALCULUS OF KIDNEY 06/03/2018 RM BELLO MD Ot N20.1 CALCULUS OF URETER 06/03/2018 RM BELLO MD Ot Z79.8 99 OTHER PHARMACIST MANAGER (CURRENT) DRUG THERAPY 06/04/2018 RM BELLO MD Ot E78.5 HYPERLIPIDEMIA, UNSPECIFIED 06/04/2018 RM BELLO MD Ot F32.9 MAJOR DEPRESSIVE DISORDER, SINGLE EPISOD 06/04/2018 RM BELLO MD Ot N20.0 CALCULUS OF KIDNEY 06/04/2018 RM BELLO MD Ot N20.1 CALCULUS OF URETER 06/04/2018 RM BELLO MD Ot Z79.8 99 OTHER PHARMACIST MANAGER (CURRENT) DRUG THERAPY 06/09/2018 RM BELLO MD Ot N20.2 CALCULUS OF KIDNEY WITH CALCULUS OF URET 06/09/2018 RM BELLO MD Ot N94.8 9 OTH COND ASSOC W FEMALE GENITAL ORGANS A 06/09/2018 RM BELLO MD Ot Z96.0 PRESENCE OF UROGENITAL IMPLANTS 06/10/2018 RM BELLO MD, Ot N20.2 CALCULUS OF KIDNEY WITH CALCULUS OF URET 06/10/2018 RM BELLO MD Ot N94.8 9 OTH COND ASSOC W FEMALE GENITAL ORGANS A 06/10/2018 RM BELLO MD, Ot Z96.0 PRESENCE OF UROGENITAL IMPLANTS 07/09/2018 RM BELLO MD Ot F17.2 10 NICOTINE DEPENDENCE, CIGARETTES, UNCOMPL 07/09/2018 RM BELLO MD Ot J45.9 09 UNSPECIFIED ASTHMA, UNCOMPLICATED 07/09/2018 RM BELLO MD Ot K21.9 GASTRO-ESOPHAGEAL REFLUX DISEASE WITHOUT 07/09/2018 RM BELLO MD Ot N20.1 CALCULUS OF URETER 07/09/2018 RM BELLO MD, Ot N81.1 0 CYSTOCELE, UNSPECIFIED 07/09/2018 RM BELLO MD, Ot Z79.8 99 OTHER PHARMACIST MANAGER (CURRENT) DRUG THERAPY 08/05/2018 RM BELLO MD Ot N20.2 CALCULUS OF KIDNEY WITH CALCULUS OF URET 08/05/2018 RM BELLO MD Ot Z98.8 90 OTHER SPECIFIED POSTPROCEDURAL STATES 08/10/2018 RM BELLO MD Ot N20.2 CALCULUS OF KIDNEY WITH CALCULUS OF URET 08/10/2018 RM BELLO MD Ot Z98.8 90 OTHER SPECIFIED POSTPROCEDURAL STATES 11/30/2018 LUANN, YULIANA S INSPECTOR TOOL Ot M25.561 PAIN IN RIGHT KNEE 12/02/2018 YULIANA KONG INSPECTOR TOOL Ot M25.561 PAIN IN RIGHT KNEE 05/03/2019 RM BELLO MD Ot N20.1 CALCULUS OF URETER 05/03/2019 RM BELLO MD Ot Z90.4 9 ACQUIRED ABSENCE OF OTHER SPECIFIED PART 05/03/2019 RM BELLO MD Ot N20.2 CALCULUS OF KIDNEY WITH CALCULUS OF URET 05/03/2019 RM BELLO MD, Ot Z90.4 9 ACQUIRED ABSENCE OF OTHER SPECIFIED PART 05/03/2019 RM BELLO MD, Ot Z90.7 10 ACQUIRED ABSENCE OF BOTH CERVIX AND UTER 05/03/2019 RM BELLO MD Ot Z96.0 PRESENCE OF UROGENITAL IMPLANTS 05/03/2019 RM BELLO MD, Ot N20.2 CALCULUS OF KIDNEY WITH CALCULUS OF URET 05/03/2019 RM BELLO MD, Ot N94.8 9 OTH COND ASSOC W FEMALE GENITAL ORGANS A 05/03/2019 MR BELLO MD, Ot Z96.0 PRESENCE OF UROGENITAL IMPLANTS 05/03/2019 RM BELLO MD, Ot N20.2 CALCULUS OF KIDNEY WITH CALCULUS OF URET 05/03/2019 RM BELLO MD Ot Z98.8 90 OTHER SPECIFIED POSTPROCEDURAL STATES 05/03/2019 LUANNYULIANA Tolentino Mattie INSPECTOR TOOL Ot M25.561 PAIN IN RIGHT KNEE 05/06/2019 YULIANA KONG INSPECTOR TOOL Ot M54.41 LUMBAGO WITH SCIATICA, RIGHT SIDE 05/30/2019 BJORN MAHONEY Ot M47.26 OTHER SPONDYLOSIS WITH RADICULOPATHY, LITA 05/30/2019 BJORN MAHONEY Ot M48.061 SPINAL STENOSIS, LUMBAR REGION WITHOUT N 05/30/2019 BJORN MAHONEY Ot M51.16 INTERVERTEBRAL DISC DISORDERS W RADICULO 05/30/2019 BJORN MAHONEY Ot R60.9 EDEMA, UNSPECIFIED 05/31/2019 RM BELLO MD Ot N20.0 CALCULUS OF KIDNEY 06/02/2019 EUGENIA MD, RM A Ot N20.0 CALCULUS OF KIDNEY 11/11/2019 LUANN, YULIANA Phelps INSPECTOR TOOL Ot R60.0 LOCALIZED EDEMA 11/11/2019 LUANN, YULIANA S INSPECTOR TOOL Ot Z53.8 PROCEDURE AND TREATMENT NOT CARRIED OUT 11/11/2019 LUANN, YULIANA Phelps INSPECTOR TOOL Ot R60.0 LOCALIZED EDEMA 11/11/2019 LUANN, YULIANA Phelps INSPECTOR TOOL Ot Z53.8 PROCEDURE AND TREATMENT NOT CARRIED OUT 11/16/2019 PRAFUL GAYLE FACC, ALI FACP CCDS Ot M79.604 PAIN IN RIGHT LEG 11/16/2019 PRAFUL MD FAC, ALI FACP CCDS Ot M79.605 PAIN IN LEFT LEG 11/16/2019 PRAFUL MD FACC, ALI FACP CCDS Ot R06.02 SHORTNESS OF BREATH 11/16/2019 PRAFUL MD FACC, ALI FACP CCDS Ot R07.89 OTHER CHEST PAIN 11/16/2019 PRAFUL FACC, ALI FACP CCDS Ot Z72.0 TOBACCO USE Procedures There is no data. Results Test Result Range Methicillin resistant Staphylococcus aur eus (MRSA) screening culture - 05/29/18 10:12 Methicillin resistant Staphylococcus aureus (MRSA) scr eening culture NEG NRG Methicillin resistant Staphylococcus aur eus (MRSA) screening culture - 06/03/18 06:55 Methicillin resistant Staphylococcus aureus (MRSA) scr eening culture NEG NRG CMP - 11/02/19 11:11 GLUCOSE 87 mg/dL 65-99 UREA NITROGEN (BUN) 11 mg/dL 7-25 CREATININE 0.86 mg/dL 0.50-1.05 eGFR NON-AFR. SAMMARINESE 78 mL/min/1.73m2 > OR = 60 eGFR 91 mL/min/1.73m2 > OR = 60 BUN/CREATININE RATIO NOT APPLICABLE (calc) 6-22 SODIUM 143 mmol/L 135-146 POTASSIUM 4.2 mmol/L 3.5-5.3 CHLORIDE 108 mmol/L 98-110 CARBON DIOXIDE 26 mmol/L 20-32 CALCIUM 9.4 mg/dL 8.6-10.4 PROTEIN, TOTAL 6.6 g/dL 6.1-8.1 ALBUMIN 4.3 g/dL 3.6-5.1 GLOBULIN 2.3 g/dL (calc) 1.9-3.7 ALBUMIN/GLOBULIN RATIO 1.9 (calc) 1.0-2. 5 BILIRUBIN, TOTAL 0.6 mg/dL 0.2-1.2 ALKALINE PHOSPHATASE 97 U/L 37-153 AST 11 U/L 10-35 ALT 13 U/L 6-29 TSH - 11/02/19 11:11 TSH 1.52 mIU/L NRG Encounters ACCT No. Visit Date/Time Discharge Status Pt. Type Provider Facility Loc./Unit Complaint [id number] 05/03/2019 09:40:00 05/03/2019 23:59:5 9 CLS Outpatient YULIANA KONG [facility] [id number] 11/02/2019 10:20:00 Document Registration [id number] 11/09/2019 12:50:00 23:59:59 CLS Outpatient YULIANA KONG INSPECTOR TOOL [facility] PAIN IN LEFT LEG,JANE LO WER EXT EDEMA [id number] 11/09/2019 12:47:00 23:59:59 CLS Outpatient PRAFUL GAYLE FACC, CHARY NEGRON CC DS [facility] SOB,CHEST DISCO MFORT,BILAT LEG PAIN [id number] 05/28/2019 12:34:00 23:59:59 CLS Outpatient RM BELLO MD [facility] FLANK PAIN,H/O STONES [id number] 05/24/2019 08:24:00 23:59:59 CLS Outpatient BJORN MAHONEY [facility] LUMBAR DISC PROLAPSE W/ RADICULOPATHY [id number] 05/03/2019 10:23:00 23:59:59 CLS Outpatient YULIANA KONG INSPECTOR TOOL [facility] FS M54.41 [id number] 11/25/2018 09:44:00 23:59:59 CLS Outpatient YULIANA KONG INSPECTOR TOOL [facility] FS M25.561 [id number] 2018 16:30:00 23:59:59 CLS Outpatient RM BELLO MD [facility] [id number] 06/09/2018 14:28:00 23:59:59 CLS Outpatient RM BELLO MD [facility] RENAL AND UNRETERAL STO SREE [id number] 06/03/2018 06:31:00 11:42:00 DIS Outpatient RM BELLO MD [facility] SD LEFT URETERAL STONE [id number] 06/02/2018 12:31:00 23:59:59 CLS Outpatient RM BELLO MD [facility] URETERAL/RENAL STONE [id number] 06/02/2018 12:00:00 13:20:00 DIS Outpatient RM BELLO MD [facility] PREOP LEFT ESWL [id number] 05/29/2018 09:53:00 15:25:00 DIS Outpatient RM BELLO MD [facility] RIGHT URETERAL STONE [id number] 05/28/2018 05:30:00 12:23:00 DIS Outpatient RM BELLO MD [facility] PREOP CYSTOSCOPY.RIGHT URETER OSCOPY ... [id number] 05/27/2018 13:51:00 23:59:59 CLS Outpatient RM BELLO MD [facility] X-RAY OF ABDOMEN [id number] 11/18/2019 10:30:00 P EN Preadmit LUANN, YULIANA S INSPECTOR TOOL [facility] PAIN IN LT LEG,PAIN IN RT LE G [id number] 11/18/2019 09:30:00 P EN Preadmit PRAFUL GAYLE FACC, CHARY WAYP CCDS [facility] CARD SOB,CHEST DISCOMFORT,BILAT L EG PAIN [id number] 11/16/2019 06:47:[address] Outpatient PRAFUL GAYLE FACC, CHARY NEGRON CCDS [facility] CATH CHEST DISCOMFORT,TOBACC O USER,JANE LEG PAIN,SOB
[2019-11-16] MEDS ORDERED: NS IV 1000 ML 1,000 ML ONE (06:57)
[2019-11-16] MEDS ORDERED: LIDOCAINE 1% INJ 20 ML 20 ML VIAL ONE (06:57)
[2019-11-16] MEDS ORDERED: HEParin (CATH LAB) 2,000 ML IV ONE (06:57)
[2019-11-16] MEDS ORDERED: NS IV 1000 ML 1,000 ML IV SCH ×2 (07:15→09:26)
[2019-11-16] MEDS ORDERED: METO-351 PO (07:19)
[2019-11-16] MEDS ORDERED: CARI1.5C PO (07:19)
[2019-11-16] MEDS ORDERED: ASPI-586 PO (07:19)
[2019-11-16] MEDS ORDERED: ALEN70TA2 PO (07:19)
[2019-11-16 07:25] LABS: HEMOGLOBIN 14.7 G/DL (11.5-16.0); MEAN PLATELET VOLUME 10.1 FL (7.4-10.4); RED CELL DISTRIBUTION WIDTH 12.5 % (10.0-14.5); WHITE BLOOD COUNT 6.5 10^3/uL (4.3-11.0)
[2019-11-16 07:44] LABS: ALANINE AMINOTRANSFERASE 14 U/L (0-55); ALKALINE PHOSPHATASE 93 U/L (40-136); BILIRUBIN,TOTAL 0.4 MG/DL (0.1-1.0); BUN/CREATININE RATIO 17; CALCIUM 8.9 MG/DL (8.5-10.1); CARBON DIOXIDE 24 MMOL/L (21-32); CHLORIDE 111 MMOL/L (98-107); CHOLESTEROL 168 MG/DL (< 200); CREATININE SERUM 0.88 MG/DL (0.60-1.30); GFR ESTIMATED > 60; GLUCOSE 81 MG/DL (70-105); HDL CHOLESTEROL 37 MG/DL (40-60); POTASSIUM 3.8 MMOL/L (3.6-5.0); SODIUM 144 MMOL/L (135-145); TOTAL PROTEIN 6.5 GM/DL (6.4-8.2); TRIGLYCERIDES 106 MG/DL (<150); VLDL CHOLESTEROL 21 MG/DL (5-40)
[2019-11-16] MEDS ORDERED: MIDAZOLAM 5 MG/5 ML (VERSED) VIAL ONE (08:17)
[2019-11-16] MEDS ORDERED: fentaNYL INJECTION 100 MCG/2 ML AMP ONE (08:17)
--- NOTE | 2019-11-16 09:26 | Cardiac Procedure Note-CS/ASA ---
Pre-Procedure Note Pre-Op Procedure Note H&P Reviewed The H&P was reviewed, patient examined and no changes noted. Date H&P Reviewed: Nov 16, 2019 Time H&P Reviewed: 08:40 Conscious Sedation Pre-Proced Time 08:40 ASA Score 3 For ASA 3 and 4: Consider anesthesia and medical clearance. Also, for patients with a history of failed moderate sedation consider anesthesia. Airway Lungs Heart ASA score ASA 1: a normal healthy patient ASA 2: a patient with a mild systemic disease (mid diabetes, controlled hypertension, obesity ASA 3: a patient with a severe systemic disease that limits activity (angina, COPD, prior Myocardial infarction) ASA 4: a patient with an incapacitating disease that is a constant threat to life (CHF, renal failure) ASA 5: a moribund patient not expected to survive 24 hrs. (ruptured aneurysm) ASA 6: a declared brain- patient whose organs are being harvested. For emergent operations, add the letter E after the classification Mallampati Classification Grade 2 Sedation Plan Analgesia, Amnesia, Plan communicated to team members, Discussed options with patient/fam, Discussed risks with patient/fam The patient is an appropriate candidate to undergo the planned procedure, sedation, and anesthesia. The patient immediately re-assessed prior to indication. CHARY BASILIO MD FACP FAC CCDS Nov 16, 2019 09:26
[2019-11-16] MEDS ORDERED: PATIENT MAY USE OWN MEDS, ALL PO SCH (09:30)
[2019-11-16] MEDS ORDERED: PRAV20TA3 PO (09:31)
--- NOTE | 2019-11-16 09:31 | Discharge Inst-Cardiology ---
Discharge Inst-Cardiac Discharge Medications New Medications: Pravastatin Sodium (Pravastatin Sodium) 20 Mg Tablet 20 MG PO DAILY, #30 TAB 5 Refills Continued Medications: Albuterol Sulfate (Albuterol Sulfate) 0.63 Mg/3 Ml Vial.neb 0.63 MG IH Q6H PRN for SHORTNESS OF BREATH, INHALER Albuterol Sulfate (Proair Hfa) 1 Puff Puff 2 PUFF IH Q4H PRN for SHORTNESS OF BREATH, PUFF 1 PUFF = 90 MCG Alendronate Sodium (Fosamax) 70 Mg Tablet 70 MG PO WEEKLY ON SUN, TAB Amitriptyline HCl (Amitriptyline HCl) 50 Mg Tablet 50 MG PO HS, TAB Aspirin (Aspir 81) 81 Mg Tablet.dr 81 MG PO DAILY, TAB Cariprazine Hydrochloride (Vraylar) 1.5 Mg Capsule 1.5 MG PO DAILY, CAP Metoprolol Succinate (Toprol Xl) 25 Mg Tab.er.24h 25 MG PO DAILY, TAB Temazepam (Temazepam) 30 Mg Capsule 30 MG PO HS, CAP CHARY BASILIO MD FACP FAC CCDS Nov 16, 2019 09:31
--- NOTE | 2019-11-16 09:32 | Discharge Inst-Post CATH ---
Discharge Inst-CATH/EP Post Cardiac Cath/EP D/C Inst Follow Up/Plan F/u with Dr Hatch in two weeks No smoking <b>CARDIAC CATH/EP PROCEDURE DISCHARGE INSTRUCTIONS</b> ACTIVITY * Go Home directly and rest. * Limit activity of the leg (or wrist if it was used) for 7 days including aerobics, swimming, jogging, bicycling, etc. * Restrict stair-climbing for 7 days if possible, if not, climb up with your non-cath leg, then bring together on the same step. * Avoid lifting, pushing, pulling or excessive movement of the affected extremity for 7 days. * Customary sexual activity may be resumed after 2 days-use caution not to use a position that strains or causes pain to the affected extremity. * No driving for 24 hours. * NO SMOKING. * Avoid straining for bowel movements for 7 days. * Gentle walking on level ground is allowed. * Returning to work will depend on the type of procedure and the results. Your doctor will discuss this with you. CALL YOUR DOCTOR FOR ANY OF THE FOLLOWING: *If bleeding from the puncture site occurs- Apply gentle pressure to site with clean cloth and call your doctor or EMS. * If a knot or lump forms under the skin, increases in size, or causes pain. * If bruising appears to be worsening or moving further down your leg instead of disappearing. * Temperature above 101 F. CARE OF YOUR GROIN INCISION; * Bruising or purple discoloration of the skin near the puncture site is common. * You may shower only, no bathtub bathing for 5 days. Be careful to avoid slipping as your leg may feel stiff. * If a closure device was used on your femoral artery, please see the attached guide regarding care of the device and your leg. * Leave dressing on FOR 24 hours. CARE OF YOUR WRIST INCISION; * Bruising or purple discoloration of the skin near the puncture site is common. * You may shower. * DO NOT submerge wrist. * Leave dressing on FOR 24 hours. CHARY HATCH MD [facility] Nov 16, 2019 09:32
--- NOTE | 2019-11-30 14:12 | CARDIAC CATHETERIZATION ---
NAME: SONNY VALLECILLO [facility] REC#: [id number] : 1970 LOCATION: [facility] ADMIT DATE: 11/09/19 DATE OF SERVICE: 11/16/2019 CARDIAC CATHETERIZATION REPORT The patient is a 49-year-old lady, who has multiple coronary artery disease risk factors and who has been experiencing symptoms suggestive of new onset of angina. Cardiac catheterization was carried out today after having obtained an informed consent. DESCRIPTION OF PROCEDURE: She was brought to the cardiac catheterization laboratory in a fasting state. Right groin was prepared and draped in the usual sterile fashion. Lidocaine 1% was used for local anesthesia. Modified Seldinger technique was used to advance a 5-Samoan sheath in the right femoral artery, 5-Samoan JL4 catheter for left coronary angiography, 5-Samoan JR4 catheter for right coronary angiography, 5-Samoan pigtail catheter was used for left heart catheterization and left ventricular angiography. Angiography of the right femoral artery was carried out through the sheath and Mynx was used to achieve hemostasis following removal of catheters and the sheath. She tolerated the procedure well. HEMODYNAMICS: Left ventricular end-diastolic pressure following coronary angiography was 14 mmHg. There was no significant pressure gradient on pullback across the aortic valve. Ascending aortic pressure was 101/50 with a mean of 68 mmHg. CORONARY ANGIOGRAPHY: Mild coronary calcification is seen. Mild coronary plaques are present in the left coronary system. Right coronary artery is dominant and does not exhibit significant disease. LEFT VENTRICULAR ANGIOGRAPHY: Left ventricular angiography was carried out in the right anterior oblique projection. Global left ventricular systolic function appears to be normal. No distinct regional wall motion abnormality is seen in this view. Left ventricular ejection fraction is approximately 55%. CONCLUSIONS: 1. Mild coronary artery disease. 2. Normal global left ventricular systolic function with ejection fraction of 55%. 3. Left ventricular end-diastolic pressure is 14 mmHg following coronary angiography. DISCUSSION AND RECOMMENDATIONS: Based on the study, it appears appropriate to continue with a conservative approach. Risk factor modification has been advised. She has been advised to quit smoking immediately and completely. Statins are being added to the regimen. Hepatic, lipid and renal profiles are recommended in four to six weeks of initiating statin therapy. Lab requisition slips have been provided for that purpose. Outpatient followup is advised. Job ID: [id number] DocumentID: [id number] Dictated Date: 11/16/2019 09:44:42 Brewery Representative Date: 11/16/2019 10:07:58 Dictated By: CHARY BASILIO MD, SINTIA, JAMIL, FACC, <Dictated by CHARY BASILIO MD, SINTIA, JAMIL, SREEKANTH, SCOTTY, CLINTONS> <Electronically signed by CHARY BASILIO MD, SINTIA, JAMIL, SREEKANTH, SCOTTY, CLINTONS> 11/24/19 1709 MTDD
== END 2019-11-16 12:35 | disposition home or self-care (01) ==
LOC: CATH 06:47 → SDC 09:16 → CATH 12:35
PROVIDERS: ATTEND Internal Medicine Cardiovascular Disease
DX: I25.10 Atherosclerotic heart disease of native coronary artery without angina pectoris (principal); F17.210 Nicotine dependence, cigarettes, uncomplicated; E78.5 Hyperlipidemia, unspecified; Z79.82 Long term (current) use of aspirin; Z79.899 Other long term (current) drug therapy; Z88.0 Allergy status to penicillin; Z88.5 Allergy status to narcotic agent; Z88.1 Allergy status to other antibiotic agents; Z90.710 Acquired absence of both cervix and uterus; Z82.3 Family history of stroke
CPT/HCPCS: 36415; 80053; 80061; 85027; 85610; 85730; 87081; 93458

== ENCOUNTER → 2019-11-18 | Outpatient (CLI) | payer MEDICAID ==
[~2019-11-18] MED LIST changes: +ALEN70TA2 PO; +ASPI-586 PO; +CARI1.5C PO; +METO-351 PO; +PRAV20TA3 PO
--- NOTE | 2019-11-18 16:18 | Diagnostic Imaging Report ---
PROCEDURE: US Venous Lower Ext Alfred. TECHNIQUE: Multiple real-time grayscale images were obtained over the lower extremities in various projections, bilaterally. Additional duplex Doppler and color Doppler images were also obtained. INDICATION: Pain and swelling in the lower extremities bilaterally. COMPARISON: None. FINDINGS: The bilateral common femoral vein, femoral vein, deep femoral vein, and popliteal vein are normal in appearance. These vessels show normal compressibility, color flow and doppler augmentation. The visualized deep calf veins demonstrate no distinct intraluminal thrombus. IMPRESSION: 1. No sonographic evidence of deep venous thrombosis in the bilateral lower extremities. Dictated by: Dictated on workstation # [id number]
--- NOTE | 2019-11-18 17:58 | Diagnostic Imaging Report ---
PROCEDURE: US Bilateral lower extremity arterial. TECHNIQUE: Multiple real-time grayscale images are obtained through both lower extremity arterial systems with color Doppler imaging and color Doppler spectral analysis. INDICATION: Bilateral leg pain and swelling. CORRELATION STUDY: None. FINDINGS: The major arteries of both lower extremities are patent to the level of the ankle. There is visualized flow in the dorsalis pedis and posterior tibial arteries. There are generally triphasic waveforms noted within the bilateral common femoral arteries and superficial femoral arteries in their proximal and mid aspect. The waveforms then become biphasic at the distal aspect of the superficial femoral artery and through the smaller vessels below the tibioperoneal trifurcation. A significant velocity change to suggest a focal area of stenosis is not suggested. IMPRESSION: 1. Patent lower extremity arterial systems. No velocity change or findings to suggest high-degree focal stenosis of either leg. Dictated by: Dictated on workstation # [id number]
== END ==
LOC: RAD 08:25
PROVIDERS: ATTEND Nurse Practitioner Family
DX: M79.605 Pain in left leg (principal); M79.604 Pain in right leg; M79.89 Other specified soft tissue disorders; R60.0 Localized edema
CPT/HCPCS: 93925; 93970

== ENCOUNTER → 2019-11-18 | Outpatient (CLI) | payer MEDICAID | LOC: CARD 08:22 | PROVIDERS: ATTEND Internal Medicine Cardiovascular Disease | DX: R07.89 Other chest pain (principal); M79.604 Pain in right leg; M79.605 Pain in left leg; R06.02 Shortness of breath; Z72.0 Tobacco use | CPT/HCPCS: 93306 ==

== ENCOUNTER 2020-01-01 07:25 | Emergency (ER) | payer MEDICAID ==
[~2020-01-01] VITALS: Ht 157.4 cm; Wt 59.0 kg
[2020-01-01 07:25] VITALS: BP 111/82
--- NOTE | 2020-01-01 07:48 | Diagnostic Imaging Report ---
Indication: Fall, left lower leg pain 2 views of the left tibia and fibula show no fracture, dislocation or other acute bony abnormality. IMPRESSION: No acute abnormality is seen. Dictated by: Dictated on workstation # [id number]
--- NOTE | 2020-01-01 07:49 | Diagnostic Imaging Report ---
INDICATION: Fall, left wrist pain 3 views of the left wrist show no fracture, dislocation or other abnormality. IMPRESSION: Normal left wrist. Dictated by: Dictated on workstation # [id number]
[2020-01-01] MEDS ORDERED: TRM50T PO (07:57)
[2020-01-01] MEDS ORDERED: HYDROcodone/APAP 5 MG/325 MG (LORTAB) TAB PO ONE (08:00)
--- NOTE | 2020-01-01 08:04 | ED Lower Extremity ---
General Chief Complaint: Lower Extremity Stated Complaint: FALL - LT LEG AND HAND PAIN Nursing Triage Note: Patient presents to the ED with c/o of left wrist and left lower leg pain. She states that she got up to use the bathroom this morning around 0100 lost her balance and fell. She reports that she went back to bed and this morning and her left leg hurt so bad she wasn't able to bear weight on it. Nursing Sepsis Screen: No Definite Risk Source: patient History of Present Illness Date Seen by Provider: Jan 01, 2020 Time Seen by Provider: 07:30 Initial Comments Accidental fall from standing several hours ago landing on left leg and left wrist. Denies hitting head, headache loss of consciousness neck pain. Patient is not on anticoagulation therapy. Reports left anterior lower leg pain worse with weightbearing with difficulty weightbearing secondary to pain along with left wrist pain. No obvious deformities on physical exam. No medications or therapies taken prior to ED arrival. Onset: this morning Pain/Injury Location: left leg Modifying Factors: Improves With Movement, Improves With Rest Allergies and Home Medications Allergies Coded Allergies: Penicillins (Verified Allergy, Mild, 05/28/18) aspirin (Verified Allergy, Mild, 05/28/18) moxifloxacin (Unverified Allergy, Mild, 05/28/18) Home Medications Albuterol Sulfate 0.63 Mg/3 Ml Vial.neb, 0.63 MG IH Q6H PRN for SHORTNESS OF BREATH, (Reported) Albuterol Sulfate 1 Puff Puff, 2 PUFF IH Q4H PRN for SHORTNESS OF BREATH, (Reported) 1 PUFF = 90 MCG Alendronate Sodium 70 Mg Tablet, 70 MG PO WEEKLY ON SUN, (Reported) Amitriptyline HCl 50 Mg Tablet, 50 MG PO HS, (Reported) Aspirin 81 Mg Tablet.dr, 81 MG PO DAILY, (Reported) Cariprazine Hydrochloride 1.5 Mg Capsule, 1.5 MG PO DAILY, (Reported) Metoprolol Succinate 25 Mg Tab.er.24h, 25 MG PO DAILY, (Reported) Pravastatin Sodium 20 Mg Tablet, 20 MG PO DAILY Prescribed by: CHARY BASILIO on 11/16/19 7037 Temazepam 30 Mg Capsule, 30 MG PO HS, (Reported) Tramadol HCl 50 Mg Tablet, 50 MG PO Q6H PRN for PAIN Prescribed by: ROCHELLE COONEY on 01/01/20 0757 Patient Home Medication List Home Medication List Reviewed: Yes Review of Systems Constitutional: see HPI EENTM: no symptoms reported Respiratory: no symptoms reported Cardiovascular: no symptoms reported Gastrointestinal: no symptoms reported Genitourinary: no symptoms reported Musculoskeletal: see HPI Skin: no symptoms reported Psychiatric/Neurological: No Symptoms Reported All Other Systems Reviewed Negative Unless Noted: Yes Past Htsyrqf-Bhglxi-Glojtx Hx Past Med/Social Hx: Reviewed Nursing Past Med/Soc Hx Patient Social History Alcohol Use: Occasionally Uses Recreational Drug Use: No Smoking Status: Current Everyday Smoker Type Used: Cigarettes 2nd Hand Smoke Exposure: No Recent Foreign Travel: No Contact w/Someone Who Travel: No Recent Infectious Disease Expo: No Recent Hopitalizations: No Physical Abuse: No Sexual Abuse: No Mistreated: No Fear: No Immunizations Up To Date Tetanus Booster (TDap): Less than 5yrs Seasonal Allergies Seasonal Allergies: Yes (MILD) Past Medical History Surgeries: Yes (WIRE REMOVED FROM KNEE, LEFT URETERAL STENT) Hysterectomy, Tubal Ligation Respiratory: Yes Asthma Cardiac: Yes High Cholesterol Neurological: No Sexually Transmitted Disease: No HIV/AIDS: No Genitourinary: Yes Kidney Stones Gastrointestinal: Yes Gastroesophageal Reflux Musculoskeletal: Yes Osteoporosis Endocrine: No HEENT: Yes (GLASSES) Loss of Vision: Bilateral Hearing Impairment: Denies Cancer: No Psychosocial: Yes Depression Integumentary: No Blood Disorders: No (HX ANEMIA) Adverse Reaction/Blood Tranf: No Physical Exam Vital Signs Vital Signs - First Documented 01/01/20 07:25 Temp 36.9 Pulse 89 Resp 16 B/P (MAP) 111/82 (92) Pulse Ox 98 O2 Delivery Room Air Capillary Refill : Less Than 3 Seconds Height, Weight, BMI Height: 5'2.00" Weight: 134lbs. 2.0oz. 60.650498ki; 23.00 BMI Method: General Appearance: other (mild distress secondary to pain) HEENT: PERRL/EOMI Neck: non-tender, full range of motion Cardiovascular: normal peripheral pulses Respiratory: chest non-tender, lungs clear Gastrointestinal: non tender, soft Legs: left leg pain, left leg soft tissue tenderness, left leg swelling Feet: bilateral foot other (left wrist, no deformity, swelling, bruising or snuffbox tenderness.) Neurologic/Tendon: normal sensation, normal motor functions Neurologic/Psychiatric: analytical research program manager II-XII nml as tested, no motor/sensory deficits, oriented x 3 Skin: normal color, warm/dry Progress/Results/Core Measures Results/Orders My Orders Orders - ROCHELLE COONEY DO Wrist 3 View Left (01/01/20 07:34) Tibia Fibula 2 View Left (01/01/20 07:34) Hydrocodone/Apap 5/325 Tablet (Lortab 5 (01/01/20 08:00) Knee Immobilizer (01/01/20 07:57) Crutches (01/01/20 07:57) Vital Signs/I&O 01/01/20 07:25 Temp 36.9 Pulse 89 Resp 16 B/P (MAP) 111/82 (92) Pulse Ox 98 O2 Delivery Room Air Blood Pressure Mean: 92 Departure Impression Primary Impression: Left wrist injury Additional Impression: Injury of left leg Disposition: 01 HOME, SELF-CARE Condition: Stable Departure-Patient Inst. Decision time for Depature: 06:59 Add. Discharge Instructions: You were evaluated in the emergency department for left leg and left wrist pain and injury. Imaging studies were performed and do not show obvious displaced fracture. Please take ibuprofen for pain and tramadol as needed for additional relief. Use crutches and knee immobilizer with partial weightbearing as tolerated. Follow-up with your PCP in 3 days for reevaluation if pain persists. All discharge instructions reviewed with patient and/or family. Voiced understanding. Scripts Tramadol HCl (Tramadol HCl) 50 Mg Tablet 50 MG PO Q6H PRN for PAIN for 3 Days, #10 TAB 0 Refills Prov: ROCHELLE COONEY DO 01/01/20 ROCHELLE COONEY DO Jan 01, 2020 08:04
== END 2020-01-01 08:06 | disposition home or self-care (01) ==
LOC: EDUNIT# 07:25 → ER FS 07:26
DX: S69.92XA Unspecified injury of left wrist, hand and finger(s), initial encounter (principal); S89.92XA Unspecified injury of left lower leg, initial encounter; J45.909 Unspecified asthma, uncomplicated; F32.9 Major depressive disorder, single episode, unspecified; E78.00 Pure hypercholesterolemia, unspecified; M81.0 Age-related osteoporosis without current pathological fracture; F17.210 Nicotine dependence, cigarettes, uncomplicated; Z88.0 Allergy status to penicillin; Z88.1 Allergy status to other antibiotic agents; Z88.8 Allergy status to other drugs, medicaments and biological substances; Z79.82 Long term (current) use of aspirin; W18.39XA Other fall on same level, initial encounter
CPT/HCPCS: 73110; 73590

== ENCOUNTER → 2020-01-03 | Outpatient (CLI) | payer MEDICAID ==
[~2020-01-03] MED LIST changes: +TRM50T PO
--- NOTE | 2020-01-03 10:31 | Diagnostic Imaging Report ---
INDICATION: Knee pain after fall. 3 views were obtained FINDINGS: The alignment is normal. There is no fracture or dislocation. Soft tissues are unremarkable. IMPRESSION: No acute radiographic abnormality. Dictated by: Dictated on workstation # [id number]
== END ==
LOC: RAD FS 09:58
PROVIDERS: ATTEND Nurse Practitioner Family
DX: M25.562 Pain in left knee (principal)
CPT/HCPCS: 73562

== ENCOUNTER → 2020-01-20 | Outpatient (CLI) | payer MEDICAID ==
--- NOTE | 2020-01-20 09:48 | Diagnostic Imaging Report ---
INDICATION: Fall with continued left knee pain. Time of exam: 9:31 AM 3 views of the left knee were obtained. Alignment is normal. Joint spaces are well-maintained. No fracture, dislocation or effusion is seen. IMPRESSION: No acute bony abnormality is detected. Dictated by: Dictated on workstation # [id number]
== END ==
LOC: RAD FS 09:25
PROVIDERS: ATTEND Nurse Practitioner
DX: S80.02XA Contusion of left knee, initial encounter (principal); W19.XXXA Unspecified fall, initial encounter
CPT/HCPCS: 73562

== ENCOUNTER → 2020-02-10 | Outpatient (CLI) | payer MEDICAID ==
--- NOTE | 2020-02-10 10:23 | Diagnostic Imaging Report ---
INDICATION: Fall with continued left knee pain. TIME OF EXAM: 9:16 AM Three views of the left knee were obtained. The medial and lateral joint spaces are well-maintained. The articular surfaces are smooth. No osteochondral defect is identified. Patellofemoral joint is unremarkable. No fracture, dislocation or effusion is identified. IMPRESSION: No acute bony abnormality is detected. Dictated by: Dictated on workstation # [id number]
== END ==
LOC: RAD FS 09:03
PROVIDERS: ATTEND Nurse Practitioner
DX: S80.02XD Contusion of left knee, subsequent encounter (principal); X58.XXXD Exposure to other specified factors, subsequent encounter
CPT/HCPCS: 73562

== ENCOUNTER 2020-04-07 23:56 | Emergency (ER) | payer MEDICAID ==
[~2020-04-07] VITALS: Ht 157.4 cm; Wt 69.6 kg
[~2020-04-07 23:56] MED LIST changes: -PRD20T PO
[2020-04-08] VITALS: BP 125/80
[2020-04-08] MEDS ORDERED: predniSONE 20 MG TAB PO ONE (00:15)
[2020-04-08] MEDS ORDERED: CEPHALEXIN 250 MG (KEFLEX) CAP PO ONE (00:15)
[2020-04-08] MEDS ORDERED: RX-HYDROCODONE/APAP 5/325 MG #4 TAB PK PO PRN (00:15)
--- NOTE | 2020-04-08 00:23 | ED Integumentary General ---
General Chief Complaint: Skin/Wound Problems Stated Complaint: RASH Nursing Triage Note: Patient states that she has had a rash for about a month. She is unsure of what is causing the rash and states she has a dermatology appointment on Friday. Patient states she came in because the rash is burning. Patient has tried several home treatments with no relief. Patient does have a generalized rash about her body. There is a concentrated area on the right side of the neck. Small blisters are noted. Source: patient Exam Limitations: no limitations History of Present Illness Date Seen by Provider: Apr 08, 2020 Time Seen by Provider: 00:08 Initial Comments Here with report of disseminated rash over the body. This has been ongoing over the last month. She has appointment next Friday with dermatology. Presents tonight because it became worse with burning. She is taking Benadryl without relief. She has unknown cause but thinks it may have initially started after dying her hair with rash around her neck. She states that Benadryl every 3 hours is not helping and she has tried multiple topical agents as well. Now has blisters or weeping to the areas around the neck. No blisters noted but weeping is noted to that area and it is quite red. Does have multiple areas of fine raised rash over the entire body for report. Does not have rash to the palms of her hands. Denies intraoral rash. Denies fever chills. Timing/Duration: getting worse, other (1 month) Severity: moderate Location: generalized Possible Cause: exposure to allergen Modifying Factors: improves with other (Topical aloe vera) Associated Symptoms: No fever; rash Allergies and Home Medications Allergies Coded Allergies: Penicillins (Verified Allergy, Mild, 05/28/18) aspirin (Verified Allergy, Mild, 05/28/18) moxifloxacin (Unverified Allergy, Mild, 05/28/18) Home Medications Albuterol Sulfate 0.63 Mg/3 Ml Vial.neb, 0.63 MG IH Q6H PRN for SHORTNESS OF BREATH, (Reported) Albuterol Sulfate 1 Puff Puff, 2 PUFF IH Q4H PRN for SHORTNESS OF BREATH, (Reported) 1 PUFF = 90 MCG Alendronate Sodium 70 Mg Tablet, 70 MG PO WEEKLY ON SUN, (Reported) Amitriptyline HCl 50 Mg Tablet, 50 MG PO HS, (Reported) Aspirin 81 Mg Tablet.dr, 81 MG PO DAILY, (Reported) Cariprazine Hydrochloride 1.5 Mg Capsule, 1.5 MG PO DAILY, (Reported) Metoprolol Succinate 25 Mg Tab.er.24h, 25 MG PO DAILY, (Reported) Pravastatin Sodium 20 Mg Tablet, 20 MG PO DAILY Prescribed by: CHARY BASILIO on 11/16/19 0931 Temazepam 30 Mg Capsule, 30 MG PO HS, (Reported) Tramadol HCl 50 Mg Tablet, 50 MG PO Q6H PRN for PAIN Prescribed by: ROCHELLE COONEY on 01/01/20 0757 Patient Home Medication List Home Medication List Reviewed: Yes Review of Systems Review of Systems Constitutional: see HPI; No chills, No fever EENTM: No mouth pain, No mouth swelling Respiratory: No cough, No short of breath Cardiovascular: No chest pain, No palpitations Gastrointestinal: No abdominal pain, No nausea, No vomiting Skin: see HPI, lesions, pruritus, rash Past Likodrv-Xyagqb-Igcxdt Hx Past Med/Social Hx: Reviewed Nursing Past Med/Soc Hx Patient Social History Smoking Status: Current Everyday Smoker Type Used: Cigarettes 2nd Hand Smoke Exposure: No Recent Foreign Travel: No Contact w/Someone Who Travel: No Recent Infectious Disease Expo: No Recent Hopitalizations: No Immunizations Up To Date Tetanus Booster (TDap): Less than 5yrs Seasonal Allergies Seasonal Allergies: Yes (MILD) Past Medical History Surgeries: Yes (WIRE REMOVED FROM KNEE, LEFT URETERAL STENT) Hysterectomy, Tubal Ligation Respiratory: Yes Asthma Cardiac: Yes High Cholesterol Neurological: No Sexually Transmitted Disease: No HIV/AIDS: No Genitourinary: Yes Kidney Stones Gastrointestinal: Yes Gastroesophageal Reflux Musculoskeletal: Yes Osteoporosis Endocrine: No HEENT: Yes (GLASSES) Loss of Vision: Bilateral Hearing Impairment: Denies Cancer: No Psychosocial: Yes Depression Integumentary: No Blood Disorders: No (HX ANEMIA) Adverse Reaction/Blood Tranf: No Family Medical History Reviewed Nursing Family Hx Physical Exam Vital Signs Capillary Refill : Less Than 3 Seconds General Appearance: WD/WN, mild distress HEENT: PERRL/EOMI, pharynx normal Cardiovascular: regular rate, rhythm, no murmur Respiratory: lungs clear, normal breath sounds Neurologic/Psychiatric: alert, oriented x 3 Skin: rash Skin Problem Location: generalized Skin Problem Character: macules, rash, other (Does have areas of contiguous erythema at the base of the neck especially on the lateral aspects with right greater than left that does appear to be weeping some and appears to be impetigo-like.) Progress/Results/Core Measures Results/Orders My Orders Orders - BYRON KUNZ MD Rx-Hydrocodone/Apap 5-325 Mg (Rx-Vicodin (04/08/20 00:15) Prednisone Tablet (Deltasone Tablet) (04/08/20 00:15) Cephalexin Capsule (Keflex Capsule) (04/08/20 00:15) Blood Pressure Mean: 95 Progress Progress Note : Progress Note Seen and evaluated. Prednisone 40 mg p.o., cephalexin 500 mg p.o. and hydrocodone go pack given. Patient has aspirin listed as allergy but is currently taking that. She started taking that about 2 months ago after a heart cath. She has been taking a half dose. This was discussed with her as a possib le cause and she will discuss this with her doctor cook larder. Discharged home with return precautions. Patient verbalized understanding of instructions and agreement with plan. Departure Impression Primary Impression: Rash Additional Impression: Cellulitis, neck Disposition: HOME, SELF-CARE Condition: Stable Departure-Patient Inst. Decision time for Depature: 00:25 Referrals: IKE OLSON MD (PCP/Family) Primary Care Physician Patient Instructions: Cellulitis and Erysipelas (Skin Infections), Skin Rash (DC) Add. Discharge Instructions: All discharge instructions reviewed with patient and/or family. Voiced understanding. Keep appointment with interventional nurse. Take medications as directed. You should discuss with your cook larder or primary doctor regarding the aspirin use as this may be the cause of the rash or associated with the rash. Discussed risk and benefits of aspirin versus this ongoing rash. Return for worse pain, fever, vomiting, weakness, breathing problems or other concerns as needed. You may take Benadryl 1 or 2 caps every 6 hours as needed for itching but do not exceed this dose. Scripts Prednisone (Prednisone) 20 Mg Tab 40 MG PO DAILY, #10 TAB 0 Refills Prov: BYRON KUNZ MD 04/08/20 Cephalexin (Cephalexin) 500 Mg Capsule 500 MG PO Q6H for 7 Days, #28 CAP 0 Refills Prov: BYRON KUNZ MD 04/08/20 BYRON KUNZ MD Apr 08, 2020 00:23
[2020-04-08] MEDS ORDERED: CEPH500C PO (00:28)
[2020-04-08] MEDS ORDERED: PRD20T PO (00:28)
== END 2020-04-08 00:30 | disposition home or self-care (01) ==
LOC: EDUNIT# 23:56 → ER FS 23:59
DX: R21 Rash and other nonspecific skin eruption (principal); L03.221 Cellulitis of neck; E78.00 Pure hypercholesterolemia, unspecified; J45.909 Unspecified asthma, uncomplicated; F32.9 Major depressive disorder, single episode, unspecified; M81.0 Age-related osteoporosis without current pathological fracture; F17.210 Nicotine dependence, cigarettes, uncomplicated; Z88.0 Allergy status to penicillin; Z88.8 Allergy status to other drugs, medicaments and biological substances; Z88.1 Allergy status to other antibiotic agents; Z79.82 Long term (current) use of aspirin
CPT/HCPCS: 99283

== ENCOUNTER → 2020-04-07 | Outpatient (CLI) | payer MEDICAID ==
[~2020-04-07] MED LIST changes: -ALEN70TA5 PO; +ALEN70TA69 PO; +PRD20T PO
--- NOTE | 2020-04-07 12:37 | Diagnostic Imaging Report ---
PROCEDURE: MRI left joint lower extremity without contrast. TECHNIQUE: Multiplanar, multisequence non contrast-enhanced MRI of the left lower extremity was accomplished. INDICATION: Left knee pain, medial meniscus tear. COMPARISON: Radiographs from 02/10/2020. FINDINGS: No acute fracture is seen in the left knee. Alignment appears normal. There is no joint effusion. The articular cartilage in the patellofemoral compartment demonstrates no full-thickness defects. The cartilage in the medial and lateral compartments also demonstrates no full-thickness defects. The lateral meniscus is intact. There is a vertical tear at the posterior horn of the medial meniscus, which may have a horizontal component. The anterior and posterior cruciate ligaments are intact. The medial collateral ligament is intact. The lateral collateral ligamentous complex is intact. The extensor mechanism is intact. The medial and lateral retinacula are intact. IMPRESSION: 1. Tear at the posterior horn of the medial meniscus of the left knee. Dictated by: Dictated on workstation # [id number]
== END ==
LOC: RAD 04-03 14:14
PROVIDERS: ATTEND Nurse Practitioner
DX: S83.242A Other tear of medial meniscus, current injury, left knee, initial encounter (principal); X58.XXXA Exposure to other specified factors, initial encounter
CPT/HCPCS: 73721

== ENCOUNTER 2021-08-27 17:38 | Emergency (ER) | payer MEDICAID ==
[~2021-08-27] VITALS: Ht 157.5 cm; Wt 63.5 kg
[~2021-08-27 17:38] MED LIST changes: -ALEN70TA69 PO; +ALEN70TA80 PO; +CYCL10TA25 PO; -CYCL10TA9 PO; +PRD20T PO
[2021-08-27 18:08] VITALS: BP 121/79
[2021-08-27] MEDS ORDERED: TETRACAINE 0.5% OPHTH SOLN 4 ML BTL (SINGLE DOSE ONLY) OU ONE (19:00)
[2021-08-27] MEDS ORDERED: FLUORESCEIN (FLUOR-I-STRIPS) 1 MG STRP OU ONE (19:00)
[2021-08-27] MEDS ORDERED: RX-POLY/TRIMETH (POLYTRIM) OP 10 ML BTL OP STA (19:47)
--- NOTE | 2021-08-27 19:50 | ED EENT ---
History of Present Illness General Chief Complaint: Eye Problems Stated Complaint: R EYE PAIN/REDDNESS Nursing Triage Note: PT AMBULATE TO ROOM FS02 WITH C/O RIGHT EYE REDNESS AND IRRITATION SINCE YESTERDAY. PT REPORTS THAT RIGHT EYE IS PAINFUL, BLURRED VISION, AND PHOTOPHOBIA. Source: patient History of Present Illness Date Seen by Provider: Aug 27, 2021 Time Seen by Provider: 19:16 Initial Comments 51-year-old female presenting with complaints of right eye pain, redness, irritation that started yesterday. She states the eye is painful and has blurred vision at times. She also has had photophobia with increased pain when exposed to bright light. She has contacts that she wears and was concerned may be a contact had gotten stuck in her eye. She had been using rewetting drops and artificial tears without improvement. 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 She states it feels like something is in her eye but she has not been able to see anything. She had tried going to urgent care in the told her she had pinkeye and to come to the emergency department. She has had no purulent drainage from the eye. Timing/Duration: abrupt Severity: severe Location: eye (R) Prearrival Treatment: over the counter meds Modifying Factors: Worse With Other (Bright lights make it worse) Associated Symptoms: No change in hearing, No cough, No drooling, No ear drainage, No facial pain/swelling, No fever, No malaise, No nasal congestion/karon inage, No poor fluid intake, No poor solids intake, No sinus infection, No sore throat, No tooth pain, No voice change Allergies and Home Medications Allergies Coded Allergies: Penicillins (Verified Allergy, Mild, 05/28/18) aspirin (Verified Allergy, Mild, 05/28/18) moxifloxacin (Unverified Allergy, Mild, 05/28/18) Patient Home Medication List Home Medication List Reviewed: Yes Albuterol Sulfate (Albuterol Sulfate) 0.63 Mg/3 Ml Vial.neb, 0.63 MG IH Q6H PRN for SHORTNESS OF BREATH, (Reported) Entered as Reported by: MINNA VENEGAS on 05/28/18 1206 Albuterol Sulfate (Proair Hfa) 1 Puff Puff, 2 PUFF IH Q4H PRN for SHORTNESS OF BREATH, (Reported) Entered as Reported by: MINNA VENEGAS on 05/28/181213 Alendronate Sodium (Fosamax) 70 Mg Tablet, 70 MG PO WEEKLY ON SUN, (Reported) Entered as Reported by: BONNIE PERALES on 11/16/19718 Amitriptyline HCl (Amitriptyline HCl) 50 Mg Tablet, 50 MG PO HS, (Reported) Entered as Reported by: MINNA VENEGAS on 05/28/181213 Aspirin (Aspir 81) 81 Mg Tablet.dr, 81 MG PO DAILY, (Reported) Entered as Reported by: BONNIE PERALES on 11/16/19718 Cariprazine Hydrochloride (Vraylar) 1.5 Mg Capsule, 1.5 MG PO DAILY, (Reported) Entered as Reported by: BONNIE PERALES on 11/16/19718 Cephalexin (Cephalexin) 500 Mg Capsule, 500 MG PO Q6H Prescribed by: BYRON KUNZ on 04/08/2027 Metoprolol Succinate (Toprol Xl) 25 Mg Tab.er.24h, 25 MG PO DAILY, (Reported) Entered as Reported by: BONNIE PERALES on 11/16/19718 Pravastatin Sodium (Pravastatin Sodium) 20 Mg Tablet, 20 MG PO DAILY Prescribed by: CHARY BASILIO on 11/16/19930 Prednisone (Prednisone) 20 Mg Tab, 40 MG PO DAILY Prescribed by: BYRON KUNZ on 04/08/2027 Temazepam (Temazepam) 30 Mg Capsule, 30 MG PO HS, (Reported) Entered as Reported by: MINNA VENEGAS on 05/28/181213 Tramadol HCl (Tramadol HCl) 50 Mg Tablet, 50 MG PO Q6H PRN for PAIN Prescribed by: ROCHELLE COONEY on 01/01/20 0757 Review of Systems Review of Systems Constitutional: No chills, No fever Eyes: See HPI Ears: No Symptoms Reported Nose: no symptoms reported Mouth: no symptoms reported Throat: no symptoms reported Respiratory: no symptoms reported Cardiovascular: no symptoms reported Gastrointestinal: no symptoms reported Musculoskeletal: no symptoms reported Neurological: Anxiety Past Kaoczdm-Aeyqbm-Dlelsx Hx Patient Social History Tobacco Use?: Yes Tobacco type used: Cigarettes Smoking Status: Current Everyday Smoker Smokeless Tobacco Frequency: Never a User Use of E-Cig and/or Vaping dev: No Use of E-Cig and/or Vaping Reji: Never a User Substance use?: No Alcohol Use?: No Pt feels they are or have been: No Immunizations Up To Date Tetanus Booster (TDap): Less than 5yrs Seasonal Allergies Seasonal Allergies: Yes (MILD) Past Medical History Surgeries: Yes (WIRE REMOVED FROM KNEE, LEFT URETERAL STENT, Cardiac cath no intervention) Hysterectomy, Tubal Ligation Respiratory: Yes Asthma Cardiac: Yes High Cholesterol Neurological: No Sexually Transmitted Disease: No HIV/AIDS: No Genitourinary: Yes Kidney Stones Gastrointestinal: Yes Gastroesophageal Reflux Musculoskeletal: Yes Osteoporosis Endocrine: No HEENT: Yes (GLASSES) Loss of Vision: Bilateral Hearing Impairment: Denies Cancer: No Psychosocial: Yes Depression Integumentary: No Blood Disorders: No (HX ANEMIA) Adverse Reaction/Blood Tranf: No Physical Exam Vital Signs Vital Signs - First Documented 08/27/21 18:08 Temp 36.0 Pulse 77 Resp 15 B/P (MAP) 121/79 (93) O2 Delivery Room Air Height, Weight, BMI Height: 5'2.00" Weight: 134lbs. 2.0oz. 60.059339cm; 25.00 BMI Method: General Appearance: WD/WN, moderate distress Eyes: right eye conjunctival inflammation, right eye corneal abrasion (When examined with tetracaine for numbing, fluorescein dye for abrasion uptake, black light, a corneal abrasion was observed at the 10 to 11 o'clock position of the iris.); bilateral eye PERRL, bilateral eye EOMI Neck: non-tender, full range of motion, supple, normal inspection Cardiovascular: normal peripheral pulses Neurologic/Psychiatric: alert, oriented x 3, other (Patient appears anxious and in moderate distress with her right eye) Skin: normal color, warm/dry Progress/Results/Core Measures Results/Orders My Orders Orders - CHAPINCITO THOMAS MD Tetracaine 0.5% Ophth Deanne Sdv (Tetracai (08/27/21 19:00) Fluorescein Strips ([id number]) (08/27/21 19:00) Rx-Poly/Trimeth Ophth (Rx-Polytrim Ophth (08/27/21 19:47) Ice: Apply To Affected Area (08/27/21 19:47) Medications Given in ED Current Medications Medications Dose Ordered Sig/Rhett Route Start Time Stop Time Status Last Admin Dose Admin Fluorescein Sodium 1 mg ONCE ONCE OU 08/27/21 19:00 08/27/21 19:01 DC 08/27/21 19:19 1 MG Tetracaine HCl 4 ml ONCE ONCE OU 08/27/21 19:00 08/27/21 19:01 DC 08/27/21 19:19 4 ML Vital Signs/I&O 08/27/21 18:08 Temp 36.0 Pulse 77 Resp 15 B/P (MAP) 121/79 (93) O2 Delivery Room Air Blood Pressure Mean: 93 Progress Progress Note : Progress Note After obtaining verbal consent from the patient the right eye was anesthetized with tetracaine ophthalmic drops. Then using the fluorescein dye the right eye was stained. The black light was used to highlight the stain. This demonstrated a oval-shaped corneal abrasion around the 10 to 11 o'clock position of the iris on the right eye. Counseled patient on follow-up and return precautions. Counseled on home remedies and treatments. Advised to use the antibiotic eyedrops to help prevent infection from her scraping and abrading the surface of the eye Departure Impression Primary Impression: Right corneal abrasion Qualified Codes: S05.01XA - Injury of conjunctiva and corneal abrasion without foreign body, right eye, initial encounter Disposition: HOME, SELF-CARE Condition: Stable Departure-Patient Inst. Decision time for Depature: 19:49 Referrals: SELFIKE MD (PCP/Family) Primary Care Physician Patient Instructions: Corneal Abrasion ED Add. Discharge Instructions: Use ibuprofen to help with pain and inflammation. Use the antibiotic eyedrops 1 drop to the right eye every 3 hours while awake for the next 5 days. Use ice pack 10 to 15 minutes every few hours as needed for pain and swelling to the eye. If not having any improvement in the eye in the next 2 to 3 days then follow-up with your eye doctor for more formal exam. All discharge instructions reviewed with patient and/or family. Voiced understanding. Images Eye 1 - Abrasion, Dye uptake (fluorescein) CHAPINCITO THOMAS MD Aug 27, 2021 19:50
== END 2021-08-27 19:55 | disposition home or self-care (01) ==
LOC: EDUNIT# 17:38 → ER FS 17:39
DX: S05.01XA Injury of conjunctiva and corneal abrasion without foreign body, right eye, initial encounter (principal); F17.210 Nicotine dependence, cigarettes, uncomplicated; W22.8XXA Striking against or struck by other objects, initial encounter
CPT/HCPCS: 99281

== ENCOUNTER → 2022-07-25 | Outpatient (CLI) | payer MEDICAID ==
[~2022-07-25] MED LIST changes: +ALBU8.5H6 IH; -ALEN70TA2 PO; +ALEN70TA85 PO; -RT-ALBUINH IH
--- NOTE | 2022-07-25 09:26 | Diagnostic Imaging Report ---
INDICATION: Knee pain. Three views were obtained. FINDINGS: The alignment is normal. There is no fracture or dislocation. There is no joint effusion. Soft tissues are unremarkable. IMPRESSION: No focal abnormality in the left knee. Dictated by: Dictated on workstation # [id number]
== END ==
LOC: RAD FS 08:42
PROVIDERS: ATTEND Nurse Practitioner
DX: M25.562 Pain in left knee (principal)
CPT/HCPCS: 73562